=== PATIENT | female | born 1950 | race Asian ===

== ENCOUNTER 2016-07-05 18:56 | Emergency (ER) | payer BC, OTHER ==
[~2016-07-05] VITALS: Ht 160 cm; Wt 72.6 kg
[~2016-07-05 18:56] MED LIST: CHOL20004 PO; CLON2TAB PO; EZET1TAB7 PO; IBUP-1482 PO; LUBI24CA7 PO; PRED20TA PO; TRAZ-147 PO
--- NOTE | 2016-07-05 19:20 | NUR ---
BLOOD DRAW IN PROGRESS AT THE BEDSIDE.
--- NOTE | 2016-07-05 19:23 | NUR ---
PT AMBULATED TO THE BATHROOM WITH A STEADY GAIT TO GIVE A URINE SAMPLE.
[2016-07-05 19:25] LABS: BASOPHILS % (AUTO) 0.4 % (0.0-2.0); EOSINOPHILS # (AUTO) 0.2 /CMM (0.0-0.7); EOSINOPHILS % (AUTO) 2.3 % (0.0-6.0); HEMATOCRIT 43 % (33-45); HEMOGLOBIN 14.6 g/dL (11.5-14.8); LYMPHOCYTES % (AUTO) 25.3 % (20.0-44.0); MEAN CORPUSCULAR HEMOGLOBIN 30 PG (26.0-33.0); MEAN CORPUSCULAR HGB CONC 34 g/dl (31.0-36.0); MEAN CORPUSCULAR VOLUME 89 fL (82-100); MONOCYTES # (AUTO) 0.5 /CMM (0.1-1.30); MONOCYTES % (AUTO) 6.4 % (2.0-12.0); NEUTROPHILS % (AUTO) 65.6 % (43.0-81.0); PLATELET COUNT (AUTO) 243 /CMM (150-450); RDW COEFFICIENT OF VARIATION 11.6 (11.5-15.0); RED BLOOD CELL COUNT(AUTO) 4.82 MIL/uL (4.0-5.2); WHITE BLOOD COUNT (AUTO) 7.7 K/uL (4.3-11.0)
[2016-07-05] MEDS ORDERED: methylPREDNISolone SOD SUCC 125 MG/2ML VIAL ONE (19:29)
[2016-07-05 19:31] LABS: APPEARANCE,URINE Clear (CLEAR); BILIRUBIN,URINE Negative (NEGATIVE); BLOOD, URINE Small Ery/uL (NEGATIVE); COLOR,URINE Yellow (YELLOW); KETONES,URINE Negative (NEGATIVE); LEUKOCYTE ESTERASE ,URINE Negative (NEGATIVE); NITRITE, URINE Negative (NEGATIVE); PROTEIN,URINE Negative (NEGATIVE); UGLUCOSE Negative (NEGATIVE); UROBILINOGEN,URINE 0.2 EU/dL (0.2)
[2016-07-05 19:38] LABS: BILIRUBIN,DIRECT 0.1 mg/dL (0.0-0.2); BILIRUBIN,TOTAL 0.3 mg/dL (0.2-1.0); CALCIUM, SERUM 9.5 mg/dL (8.5-10.1); CREATININE 0.8 mg/dL (0.6-1.3); POTASSIUM 3.7 mmol/L (3.5-5.1); TOTAL PROTEIN, SERUM 7.4 g/dL (6.4-8.2)
[2016-07-05] MEDS ORDERED: IPRATROPIUM NEB FS 0.5 MG/2.5 ML AMPUL.NEB ONE (19:38)
[2016-07-05] MEDS ORDERED: ALBUTEROL FS 2.5 MG/3 ML VIAL.NEB ONE (19:38)
[2016-07-05] MEDS: methylPREDNISolone SOD SUCC 125 MG/2ML VIAL IV ONE (19:46)
--- NOTE | 2016-07-05 19:46 | NUR ---
BREATHING TX IN PROGRESS.
[2016-07-05 19:50] LABS: ADD URINE CULTURE NO; BACTERIA,URINE None seen /HPF (None Seen); SQUAMOUS EPITHELIAL CELL,UR Few /HPF (None Seen); WBC,URINE 0-2 /HPF (0-3)
[2016-07-05] MEDS: IPRATROPIUM NEB FS 0.5 MG/2.5 ML AMPUL.NEB NEB ONE (20:06)
[2016-07-05] MEDS: ALBUTEROL FS 2.5 MG/3 ML VIAL.NEB NEB ONE (20:06)
[2016-07-05 21:15] VITALS: BP 131/79
== END 2016-07-05 20:55 | disposition home or self-care (01) ==
LOC: ER 18:57
DX: J45.901 Unspecified asthma with (acute) exacerbation (principal); Z88.5 Allergy status to narcotic agent; Z88.0 Allergy status to penicillin; Z88.2 Allergy status to sulfonamides; Z88.8 Allergy status to other drugs, medicaments and biological substances; Z88.6 Allergy status to analgesic agent; Z88.1 Allergy status to other antibiotic agents; Z91.011 Allergy to milk products
CPT/HCPCS: 36415; 71010-TC; 80048-TC; 80076-TC; 81000-TC; 85025-TC; A4606; J2930; Z7610

== ENCOUNTER 2017-07-04 14:14 | Outpatient (CLI) | payer BC, OTHER ==
[~2017-07-04 14:14] MED LIST changes: +EZET1TAB31 PO; -EZET1TAB7 PO; -IBUP-1482 PO; +IBUP-1957 PO; +LUBI24CA5 PO; -LUBI24CA7 PO; -TRAZ-147 PO; +TRAZ-214 PO
[2017-07-04 15:24] LABS: BASOPHILS % (AUTO) 0.3 % (0.0-2.0); EOSINOPHILS % (AUTO) 2.1 % (0.0-6.0); HEMATOCRIT 39 % (33-45); HEMOGLOBIN 13.3 g/dL (11.5-14.8); LYMPHOCYTES # (AUTO) 2.1 /CMM (0.8-4.8); LYMPHOCYTES % (AUTO) 28.7 % (20.0-44.0); MEAN CORPUSCULAR HGB CONC 35 g/dl (31.0-36.0); MEAN CORPUSCULAR VOLUME 89 fL (82-100); MONOCYTES # (AUTO) 0.5 /CMM (0.1-1.30); MONOCYTES % (AUTO) 6.5 % (2.0-12.0); NEUTROPHILS # (AUTO) 4.5 /CMM (1.8-8.9); NEUTROPHILS % (AUTO) 62.4 % (43.0-81.0); PLATELET COUNT (AUTO) 250 /CMM (150-450); RDW COEFFICIENT OF VARIATION 12.1 (11.5-15.0); RED BLOOD CELL COUNT(AUTO) 4.35 MIL/uL (4.0-5.2); WHITE BLOOD COUNT (AUTO) 7.2 K/uL (4.3-11.0)
[2017-07-04 15:33] LABS: ALBUMIN 4.4 g/dL (3.4-5.0); BILIRUBIN,TOTAL 0.5 mg/dL (0.2-1.0); CALCIUM, SERUM 9.3 mg/dL (8.5-10.1); CREATININE 0.6 mg/dL (0.6-1.3); POTASSIUM 3.6 mmol/L (3.5-5.1); TOTAL PROTEIN, SERUM 7.6 g/dL (6.4-8.2)
[2017-07-04 16:09] LABS: APPEARANCE,URINE CLEAR (CLEAR); BILIRUBIN,URINE NEGATIVE (NEGATIVE); BLOOD, URINE NEGATIVE Ery/uL (NEGATIVE); COLOR,URINE YELLOW (YELLOW); KETONES,URINE NEGATIVE (NEGATIVE); LEUKOCYTE ESTERASE ,URINE NEGATIVE (NEGATIVE); NITRITE, URINE NEGATIVE (NEGATIVE); PH,URINE 5.5 (5.0-8.0); PROTEIN,URINE NEGATIVE (NEGATIVE); UGLUCOSE NEGATIVE (NEGATIVE); UROBILINOGEN,URINE 0.2 EU/dL (0.2)
[2017-07-04 18:52] LABS: FREE T4 (FREE THYROXINE) 1.16 ng/dL (0.76-1.46); THYROID STIMULATING HORMONE 0.752 uIU/mL (0.358-3.74); URIC ACID 5.1 mg/dL (2.6-7.2)
== END 2017-07-04 23:59 | disposition home or self-care (01) ==
LOC: LAB 14:14
PROVIDERS: ATTEND Legal Medicine
DX: Z00.01 Encounter for general adult medical examination with abnormal findings (principal); I10 Essential (primary) hypertension; E03.9 Hypothyroidism, unspecified; D64.9 Anemia, unspecified
CPT/HCPCS: 36415; 80053-TC; 80061-TC; 81000-TC; 82306; 82728-TC; 82746; 83540-TC; 84439-TC; 84443-TC; 84550-TC; 85025-TC

== ENCOUNTER → 2017-07-29 | Outpatient (CLI) | payer BC | END | disposition home or self-care (01) | LOC: RAD 09:24 | PROVIDERS: ATTEND Legal Medicine | DX: J98.11 Atelectasis (principal); I70.0 Atherosclerosis of aorta; J98.6 Disorders of diaphragm | CPT/HCPCS: 71046 ==

== ENCOUNTER 2017-10-20 03:38 | Emergency (ER) | payer BC ==
[~2017-10-20] VITALS: Ht 165.1 cm; Wt 65.8 kg
--- NOTE | 2017-10-20 03:38 | NUR ---
BB COWORKER; "WHILE WORKING, BILAT FLANK PAIN BECAME WORSE". PT IS HYPERTENSIVE BUT OTHERWISE VSS NAD A/OX4 ABLE TO MAKE NEEDS KNOWN. WILL CONTINUE TO MONITOR FOR ANY CHNAGES DURING THE SHIFT.
[2017-10-20] MEDS ORDERED: KETOROLAC TROMETHAMINE INJ 30 MG/ML VIAL ONE (03:55)
[2017-10-20] MEDS ORDERED: DIAZEPAM 5 MG TABLET ONE (03:56)
[2017-10-20] MEDS ORDERED: KETOROLAC TROMETHAMINE INJ 30 MG/ML VIAL IV ONE (04:00)
[2017-10-20] MEDS ORDERED: DIAZEPAM 10 MG TABLET PO ONE (04:00)
[2017-10-20] MEDS ORDERED: IV NS 0.9% 1,000 ML BAG IV ONE (04:00)
[2017-10-20 04:06] LABS: BASOPHILS % (AUTO) 0.3 % (0.0-2.0); EOSINOPHILS % (AUTO) 4.3 % (0.0-6.0); HEMATOCRIT 40 % (33-45); HEMOGLOBIN 13.5 g/dL (11.5-14.8); LYMPHOCYTES # (AUTO) 2.3 /CMM (0.8-4.8); LYMPHOCYTES % (AUTO) 32.1 % (20.0-44.0); MEAN CORPUSCULAR HEMOGLOBIN 31 PG (26.0-33.0); MEAN CORPUSCULAR HGB CONC 33 g/dl (31.0-36.0); MEAN CORPUSCULAR VOLUME 92 fL (82-100); MONOCYTES # (AUTO) 0.6 /CMM (0.1-1.30); MONOCYTES % (AUTO) 8.5 % (2.0-12.0); NEUTROPHILS # (AUTO) 3.9 /CMM (1.8-8.9); NEUTROPHILS % (AUTO) 54.8 % (43.0-81.0); PLATELET COUNT (AUTO) 259 /CMM (150-450); RDW COEFFICIENT OF VARIATION 12.2 (11.5-15.0); RED BLOOD CELL COUNT(AUTO) 4.36 MIL/uL (4.0-5.2); WHITE BLOOD COUNT (AUTO) 7.1 K/uL (4.3-11.0)
--- NOTE | 2017-10-20 04:18 | NUR ---
PT OFF TO CT
--- NOTE | 2017-10-20 04:23 | NUR ---
PT BACK FROM CT
[2017-10-20 04:28] LABS: ALBUMIN 4.3 g/dL (3.4-5.0); BILIRUBIN,DIRECT 0.1 mg/dL (0.0-0.2); BILIRUBIN,TOTAL 0.3 mg/dL (0.2-1.0); CALCIUM, SERUM 9.1 mg/dL (8.5-10.1); CREATININE 0.9 mg/dL (0.6-1.3); POTASSIUM 3.4 mmol/L (3.5-5.1); TOTAL PROTEIN, SERUM 7.7 g/dL (6.4-8.2)
[2017-10-20] MEDS ORDERED: ONDANSETRON HCL/PF 4 MG/2 ML VIAL ONE (05:29)
[2017-10-20] MEDS ORDERED: ONDANSETRON HCL/PF 4 MG/2 ML VIAL IV ONE (05:30)
[2017-10-20 06:14] VITALS: BP 150/84
[2017-10-20 06:25] LABS: APPEARANCE,URINE CLEAR (CLEAR); BILIRUBIN,URINE NEGATIVE (NEGATIVE); BLOOD, URINE NEGATIVE Ery/uL (NEGATIVE); COLOR,URINE YELLOW (YELLOW); KETONES,URINE NEGATIVE (NEGATIVE); LEUKOCYTE ESTERASE ,URINE NEGATIVE (NEGATIVE); NITRITE, URINE NEGATIVE (NEGATIVE); PH,URINE 6.5 (5.0-8.0); PROTEIN,URINE NEGATIVE (NEGATIVE); UGLUCOSE NEGATIVE (NEGATIVE); UROBILINOGEN,URINE 0.2 EU/dL (0.2)
== END 2017-10-20 06:15 | disposition home or self-care (01) ==
LOC: ER 03:39
DX: M48.56XA Collapsed vertebra, not elsewhere classified, lumbar region, initial encounter for fracture (principal); G89.29 Other chronic pain; R10.9 Unspecified abdominal pain; J45.909 Unspecified asthma, uncomplicated; Z88.5 Allergy status to narcotic agent; Z88.2 Allergy status to sulfonamides; Z88.8 Allergy status to other drugs, medicaments and biological substances; Z88.4 Allergy status to anesthetic agent; Z91.011 Allergy to milk products; Z90.49 Acquired absence of other specified parts of digestive tract
CPT/HCPCS: 36415; 80048-TC; 80076-TC; 81000-TC; 83690-TC; 85025-TC; 87086-TC; A4606; J1885; J2405; Z7610

== ENCOUNTER 2017-12-02 13:15 | Emergency (ER) | payer BC, OTHER ==
[~2017-12-02] VITALS: Ht 160 cm; Wt 75.7 kg
--- NOTE | 2017-12-02 13:15 | NUR ---
SYNCOPE IN THE BATHROOM WHILE PREPARING FOR HER COLONOSCOPY. SCALP LAC NOTED. BG 127 IN THE FIELD, NAD NOTED, VSS, RESP EVEN AND UNLABORED, PT WAS PUT ON MONITOR, AT BS
[2017-12-02] MEDS ORDERED: TDAP [DIPH/PERTUSSIS/TET] 0.5 ML VIAL IM ONE ×2 (13:26→14:30)
[2017-12-02] MEDS ORDERED: IV NS 0.9% 1,000 ML BAG IV ONE (13:30)
[2017-12-02 13:31] LABS: BASOPHILS # (AUTO) 0.3 /CMM (0.0-0.2); EOSINOPHILS % (AUTO) 1.3 % (0.0-6.0); HEMATOCRIT 44 % (33-45); HEMOGLOBIN 14.6 g/dL (11.5-14.8); LYMPHOCYTES # (AUTO) 1.7 /CMM (0.8-4.8); LYMPHOCYTES % (AUTO) 17.6 % (20.0-44.0); MEAN CORPUSCULAR HEMOGLOBIN 30 PG (26.0-33.0); MEAN CORPUSCULAR HGB CONC 33 g/dl (31.0-36.0); MEAN CORPUSCULAR VOLUME 90 fL (82-100); MONOCYTES # (AUTO) 0.4 /CMM (0.1-1.30); MONOCYTES % (AUTO) 4.1 % (2.0-12.0); NEUTROPHILS # (AUTO) 7.1 /CMM (1.8-8.9); PLATELET COUNT (AUTO) 232 /CMM (150-450); RDW COEFFICIENT OF VARIATION 11.2 (11.5-15.0); RED BLOOD CELL COUNT(AUTO) 4.87 MIL/uL (4.0-5.2); WHITE BLOOD COUNT (AUTO) 9.6 K/uL (4.3-11.0)
[2017-12-02 13:40] LABS: CALCIUM, SERUM 9.2 mg/dL (8.5-10.1); CARBON DIOXIDE 25 mmol/L (21-32); CHLORIDE 102 mmol/L (98-107); CREATININE 0.9 mg/dL (0.6-1.3); GLUCOSE 140 mg/dL (74-106); POTASSIUM 3.5 mmol/L (3.5-5.1); SODIUM SERUM 136 mmol/L (136-145); UREA NITROGEN, BLOOD 9 mg/dL (7-18)
[2017-12-02] MEDS ORDERED: KETOROLAC TROMETHAMINE INJ 30 MG/ML VIAL ONE (13:40)
[2017-12-02] MEDS ORDERED: ONDANSETRON HCL/PF 4 MG/2 ML VIAL ONE (13:40)
[2017-12-02 13:43] LABS: INR 0.95 (0.85-1.15)
[2017-12-02 13:46] LABS: ALANINE AMINOTRANSFERASE 42 U/L (12-78); ALBUMIN 4.2 g/dL (3.4-5.0); ALKALINE PHOSPHATASE 70 U/L (46-116); ASPARTATE AMINOTRANSFERASE 23 U/L (15-37); BILIRUBIN,DIRECT 0.1 mg/dL (0.0-0.2); BILIRUBIN,TOTAL 0.5 mg/dL (0.2-1.0); TOTAL PROTEIN, SERUM 3.3 g/dL (6.4-8.2)
[2017-12-02 13:47] LABS: TROPONIN I < 0.017 ng/mL (0.00-0.056)
[2017-12-02] MEDS ORDERED: LIDOCAINE 1%-EPI 1:100,000 20 ML VIAL ONE (13:52)
[2017-12-02] MEDS ORDERED: KETOROLAC TROMETHAMINE INJ 30 MG/ML VIAL IV ONE (14:00)
[2017-12-02] MEDS ORDERED: LIDOCAINE 1%-EPI 1:100,000 20 ML VIAL TP ONE (14:00)
[2017-12-02] MEDS ORDERED: ONDANSETRON HCL/PF - ER 4 MG/2 ML VIAL IV ONE (14:00)
[2017-12-02 15:41] VITALS: BP 111/60
--- NOTE | 2017-12-02 15:42 | NUR ---
Patient discharged to home in stable condition. Written and verbal after care instructions given. Patient verbalizes understanding of instruction.IV removed. Catheter intact and site benign. Pressure and 4x4 applied to site. No bleeding noted.
== END 2017-12-02 15:43 | disposition home or self-care (01) ==
LOC: ER 13:16
DX: S01.01XA Laceration without foreign body of scalp, initial encounter (principal); R55 Syncope and collapse; J45.909 Unspecified asthma, uncomplicated; K58.9 Irritable bowel syndrome, unspecified; Z90.49 Acquired absence of other specified parts of digestive tract; Z91.011 Allergy to milk products; Z88.0 Allergy status to penicillin; Z88.5 Allergy status to narcotic agent; Z88.6 Allergy status to analgesic agent; Z88.8 Allergy status to other drugs, medicaments and biological substances; Z88.2 Allergy status to sulfonamides; Z88.1 Allergy status to other antibiotic agents; Z79.899 Other long term (current) drug therapy; W18.39XA Other fall on same level, initial encounter; Y93.89 Activity, other specified; Y92.89 Other specified places as the place of occurrence of the external cause; Y99.8 Other external cause status
CPT/HCPCS: 12002; 36415; 70450; 71045; 72125; 80048; 80076; 84484; 85025; 85730; 86850; 90471; 90715; 93005; 96361; 96374; 96375; 99285; A4606; A6402 ×2; J1885; J2405; J3490; J7030; Z7610

== ENCOUNTER 2017-12-17 19:55 | Emergency (ER) | payer MEDICARE, BC ==
[~2017-12-17] VITALS: Ht 165.1 cm; Wt 81.2 kg
[2017-12-17 19:59] VITALS: BP 140/86
[2017-12-17 20:24] LABS: BASOPHILS # (AUTO) 0.1 /CMM (0.0-0.2); BASOPHILS % (AUTO) 0.8 % (0.0-2.0); EOSINOPHILS % (AUTO) 3.2 % (0.0-6.0); HEMATOCRIT 42 % (33-45); HEMOGLOBIN 14.4 g/dL (11.5-14.8); LYMPHOCYTES # (AUTO) 2.3 /CMM (0.8-4.8); LYMPHOCYTES % (AUTO) 29.8 % (20.0-44.0); MEAN CORPUSCULAR HEMOGLOBIN 31 PG (26.0-33.0); MEAN CORPUSCULAR HGB CONC 34 g/dl (31.0-36.0); MEAN CORPUSCULAR VOLUME 90 fL (82-100); MONOCYTES # (AUTO) 0.7 /CMM (0.1-1.30); MONOCYTES % (AUTO) 8.7 % (2.0-12.0); NEUTROPHILS # (AUTO) 4.4 /CMM (1.8-8.9); NEUTROPHILS % (AUTO) 57.5 % (43.0-81.0); PLATELET COUNT (AUTO) 257 /CMM (150-450); RDW COEFFICIENT OF VARIATION 11.7 (11.5-15.0); RED BLOOD CELL COUNT(AUTO) 4.71 MIL/uL (4.0-5.2); WHITE BLOOD COUNT (AUTO) 7.7 K/uL (4.3-11.0)
[2017-12-17 20:31] LABS: CALCIUM, SERUM 9.5 mg/dL (8.5-10.1); CREATININE 0.7 mg/dL (0.6-1.3); POTASSIUM 3.6 mmol/L (3.5-5.1)
== END 2017-12-17 21:21 | disposition home or self-care (01) ==
LOC: ER 19:57
DX: R42 Dizziness and giddiness (principal); J45.909 Unspecified asthma, uncomplicated; F41.9 Anxiety disorder, unspecified; K58.9 Irritable bowel syndrome, unspecified; R94.31 Abnormal electrocardiogram [ECG] [EKG]; Z90.49 Acquired absence of other specified parts of digestive tract; Z88.0 Allergy status to penicillin; Z88.2 Allergy status to sulfonamides; Z88.8 Allergy status to other drugs, medicaments and biological substances; Z91.011 Allergy to milk products; Z88.6 Allergy status to analgesic agent; Z88.5 Allergy status to narcotic agent
CPT/HCPCS: 36415; 80048-TC; 85025-TC; A4606; Z7610

== ENCOUNTER 2018-06-10 07:46 | Inpatient (IN) | payer MEDICARE, BC ==
[~2018-06-10] VITALS: Ht 160 cm; Wt 74.8 kg
[2018-06-10] MEDS ORDERED: KETOROLAC TROMETHAMINE INJ 30 MG/ML VIAL ONE (08:35)
[2018-06-10 08:36] LABS: CALCIUM, SERUM 9.6 mg/dL (8.5-10.1); CARBON DIOXIDE 29 mmol/L (21-32); CHLORIDE 102 mmol/L (98-107); CREATININE 0.7 mg/dL (0.6-1.3); GLUCOSE 136 mg/dL (74-106); POTASSIUM 4.1 mmol/L (3.5-5.1); SODIUM SERUM 140 mmol/L (136-145); UREA NITROGEN, BLOOD 13 mg/dL (7-18)
[2018-06-10] MEDS ORDERED: ONDANSETRON HCL/PF 4 MG/2 ML VIAL ONE ×2 (08:36→10:29)
[2018-06-10 08:42] LABS: ALANINE AMINOTRANSFERASE 40 U/L (12-78); ALBUMIN 4.1 g/dL (3.4-5.0); ALKALINE PHOSPHATASE 84 U/L (46-116); ASPARTATE AMINOTRANSFERASE 24 U/L (15-37); BILIRUBIN,DIRECT 0.1 mg/dL (0.0-0.2); BILIRUBIN,TOTAL 0.4 mg/dL (0.2-1.0); TOTAL PROTEIN, SERUM 7.6 g/dL (6.4-8.2)
[2018-06-10 08:46] LABS: BASOPHILS % (AUTO) 0.3 % (0.0-2.0); EOSINOPHILS % (AUTO) 2.1 % (0.0-6.0); HEMATOCRIT 40 % (33-45); HEMOGLOBIN 13.8 g/dL (11.5-14.8); LYMPHOCYTES # (AUTO) 1.4 /CMM (0.8-4.8); LYMPHOCYTES % (AUTO) 18.8 % (20.0-44.0); MEAN CORPUSCULAR HGB CONC 35 g/dl (31.0-36.0); MEAN CORPUSCULAR VOLUME 89 fL (82-100); MONOCYTES # (AUTO) 0.5 /CMM (0.1-1.30); NEUTROPHILS # (AUTO) 5.5 /CMM (1.8-8.9); NEUTROPHILS % (AUTO) 71.8 % (43.0-81.0); PLATELET COUNT (AUTO) 241 /CMM (150-450); RED BLOOD CELL COUNT(AUTO) 4.46 MIL/uL (4.0-5.2); WHITE BLOOD COUNT (AUTO) 7.7 K/uL (4.3-11.0)
--- NOTE | 2018-06-10 08:50 | NUR ---
patient presented to the ER c/o chest pain non radiating pressure like pain. [place] On room air, breathing evenly and unlabored. connected to the monitor. kept comfortable. will continue to monitor accordingly.
[2018-06-10] MEDS ORDERED: KETOROLAC TROMETHAMINE INJ 30 MG/ML VIAL IV ONE (09:00)
[2018-06-10] MEDS ORDERED: ONDANSETRON HCL/PF - ER 4 MG/2 ML VIAL IV ONE ×2 (09:00→10:30)
--- NOTE | 2018-06-10 10:13 | NUR ---
ORTHO ON-CALL PAGED
--- NOTE | 2018-06-10 10:20 | NUR ---
PT AAOX4, VSS. DENIES CP, SOB, DIZZINESS, N/V @ THIS TIME. C/O LT RIB PAIN 01/08, NOTIFIED DR. JIMÉNEZ, AWAITING ORDERS.
[2018-06-10] MEDS ORDERED: FENTANYL PF 100MCG/2ML AMPUL ONE (10:30)
[2018-06-10] MEDS ORDERED: FENTANYL PF 100MCG/2ML AMPUL IV ONE (10:30)
--- NOTE | 2018-06-10 10:48 | NUR ---
DR ZAVALA AND ORTHO ON-CALL PAGED
--- NOTE | 2018-06-10 10:50 | NUR ---
MEDICATED FOR PAIN PER ERMD ORDER, PT LISA WELL. WILL CONT TO MONITOR.
--- NOTE | 2018-06-10 11:22 | NUR ---
CALLED CALEDONIA DEE JAIMES DR WAS PAGED.
--- NOTE | 2018-06-10 11:25 | NUR ---
REPORT GIVEN TO ROSAMARIA HANSEN @ [facility] FOR CONT OF CARE.
[2018-06-10] MEDS ORDERED: Medication Not On Formulary EA (Ezetimibe/Simvastatin (Vytorin 10-40 Mg Tablet) 1 TAB) PO SCH (12:00)
[2018-06-10] MEDS ORDERED: IBUPROFEN 400 MG TABLET PO PRN (12:30)
[2018-06-10 13:03] LABS: MAGNESIUM 1.9 mg/dL (1.8-2.4); PHOSPHORUS 4.1 mg/dL (2.5-4.9); THYROID STIMULATING HORMONE 1.524 uIU/mL (0.358-3.74)
--- NOTE | 2018-06-10 13:20 | NUR ---
HARVEST FIELD TICKETER ADMISSION NOTES RECEIVED PATIENT FROM ED VIA GURNEY. ABLE TO AMBULATE TO BED WITH ASSIST.ON 3 LTRS OXYGEN FOR COMFORT ACUTE PAIN 12/10 TO RIGHT SIDE UNDER RIB CAGE. SKIN INTACT FULL ASSESSMENT DONE. AT BEDSIDE . SAFETY PRECAUTION IN PLAC E2X SIDE RAILS UP AWAITING MED RECON WILL CONT TO MONITOR
[2018-06-10 13:30] VITALS: BP 137/60
[2018-06-10] MEDS ORDERED: ACETAMINOPHEN 325 MG TABLET PO PRN (13:30)
[2018-06-10] MEDS ORDERED: ALBUTEROL FS 2.5 MG/0.5 ML VIAL.NEB NEB PRN (13:30)
[2018-06-10] MEDS ORDERED: IPRATROPIUM NEB FS 0.5 MG/2.5 ML AMPUL.NEB NEB PRN (13:30)
[2018-06-10] MEDS ORDERED: FENTANYL PF 100MCG/2ML AMPUL IV PRN (14:00)
[2018-06-10] MEDS: predniSONE 20 MG TABLET PO SCH (14:24)
[2018-06-10] MEDS: CHOLECALCIFEROL 1,000 UNIT TABLET (VIT D3) PO SCH (14:24)
[2018-06-10] MEDS: ONDANSETRON HCL/PF 4 MG/2 ML VIAL IVP PRN ×3 (14:25→23:45)
[2018-06-10] MEDS: ENOXAPARIN SODIUM 40 MG/0.4 ML DISP.SYRIN SQ SCH (14:25)
[2018-06-10] MEDS: FENTANYL PF 100MCG/2ML AMPUL IV PRN ×3 (14:34→23:42)
[2018-06-10 16:00] VITALS: BP 101/44
[2018-06-10 17:00] VITALS: BP 101/44
[2018-06-10] MEDS: LIDOCAINE 5% (PATCH) 1 EA PATCH TP SCH (18:52)
--- NOTE | 2018-06-10 19:15 | NUR ---
AVIATION SURVIVAL TECHNICIAN CLOSING NOTES BEDSIDE REPORT GIVEN A/O X4 NO RESPIRATORY DISTRESS NOTED CURRENTLY ON ROOM AIR. CHRONIC RIB PAIN LAST DOSE OF FENTANYL GIVEN @ 1800 WITH ZOFRAN. AMBULATORY IN ROOM APPETITE GOOD. SKIN INTACT LIDODERM PATCH APPLIED TO L SIDE FOR PAIN RELIEF. ABLE TO MAKE NEEDS KNOWN AND ALL MET. SAFETY PRECAUTIONS IN PLACE BED IN LOW POSITION CALL LIGHT WITHIN REACH WILL ENDORSE TO NOC
--- NOTE | 2018-06-10 20:00 | NUR ---
TELE/RN NOTES: RECEIVED PT. IN BED SITTING W/ HER SISTERS BY BEDSIDE. A/O X 4. ABLE TO MAKE NEEDS KNOWN. ON TELE MONITOR W/ SR. CONTINENT OF B/B. ABLE TO AMBULATE W/ STEADY GAIT. ADVISED TO CALL FOR HELP WHEN GETTING OUT OF BED FOR SAFETY. HAS LAC G 20 PATENT AND INTACT W/ NO S/S OF INFECTION/INFILTRATION NOTED. CALL LIGHT W/ REACH. WILL CONTINUE TO MONITOR.
[2018-06-10 21:00] VITALS: BP 136/72
[2018-06-10] MEDS: clonazePAM 1 MG TABLET PO SCH (22:16)
[2018-06-10] MEDS: TRAZODONE 50 MG TABLET PO SCH (22:16)
[2018-06-11] VITALS (10 sets, daily range): BP systolic 111–150; BP diastolic 49–72
[2018-06-11] MEDS: ONDANSETRON HCL/PF 4 MG/2 ML VIAL IVP PRN (06:21)
[2018-06-11] MEDS: FENTANYL PF 100MCG/2ML AMPUL IV PRN ×5 (06:22→22:09)
[2018-06-11 06:34] LABS: BASOPHILS % (AUTO) 0.1 % (0.0-2.0); HEMATOCRIT 40 % (33-45); HEMOGLOBIN 13.7 g/dL (11.5-14.8); LYMPHOCYTES # (AUTO) 0.9 /CMM (0.8-4.8); MEAN CORPUSCULAR HGB CONC 34 g/dl (31.0-36.0); MEAN CORPUSCULAR VOLUME 90 fL (82-100); MONOCYTES # (AUTO) 0.1 /CMM (0.1-1.30); MONOCYTES % (AUTO) 1.9 % (2.0-12.0); NEUTROPHILS # (AUTO) 5.2 /CMM (1.8-8.9); PLATELET COUNT (AUTO) 231 /CMM (150-450); RED BLOOD CELL COUNT(AUTO) 4.47 MIL/uL (4.0-5.2); WHITE BLOOD COUNT (AUTO) 6.2 K/uL (4.3-11.0)
[2018-06-11 06:47] LABS: ALANINE AMINOTRANSFERASE 43 U/L (12-78); ALBUMIN 3.7 g/dL (3.4-5.0); ALKALINE PHOSPHATASE 74 U/L (46-116); ASPARTATE AMINOTRANSFERASE 20 U/L (15-37); BILIRUBIN,TOTAL 0.3 mg/dL (0.2-1.0); CALCIUM, SERUM 9.4 mg/dL (8.5-10.1); CARBON DIOXIDE 27 mmol/L (21-32); CHLORIDE 104 mmol/L (98-107); CREATININE 0.7 mg/dL (0.6-1.3); GLUCOSE 200 mg/dL (74-106); PHOSPHORUS 3.2 mg/dL (2.5-4.9); POTASSIUM 4.1 mmol/L (3.5-5.1); SODIUM SERUM 142 mmol/L (136-145); TOTAL PROTEIN, SERUM 7.3 g/dL (6.4-8.2); UREA NITROGEN, BLOOD 12 mg/dL (7-18)
--- NOTE | 2018-06-11 07:16 | NUR ---
TELE/RN NOTES: REPORT GIVEN TO NEXT SHIFT NURSE FOR KALA.
--- NOTE | 2018-06-11 07:30 | NUR ---
NEWBORN HEARING SCREENER OPENING NOTES RECEIVED BEDSIDE REPORT FROM [facility]. PATIENT ASLEEP ABLE TO AROUSE WITH VOICE AND TOUCH. A/O X4 NO SIGNS OR SYMPTOMS OF RESPIRATORY DISTRESS OR ACUTE PAIN NOTED. LAST FENTANYL GIVEN AROUND 0600. AMBULATES IN ROOM BRP. SAFETY PRECAUTIONS IN PLACE BED IN LOW POSITION SIDE RAILS X2 CALL LIGHT WITHIN REACH
[2018-06-11] MEDS: PANTOPRAZOLE 40 MG TABLET.DR PO SCH (07:38)
[2018-06-11] MEDS: EZETIMIBE 10 MG TABLET PO SCH (08:06)
[2018-06-11] MEDS: predniSONE 20 MG TABLET PO SCH (08:06)
[2018-06-11] MEDS: CHOLECALCIFEROL 1,000 UNIT TABLET (VIT D3) PO SCH (08:07)
[2018-06-11] MEDS: ENOXAPARIN SODIUM 40 MG/0.4 ML DISP.SYRIN SQ SCH (08:08)
[2018-06-11] MEDS ORDERED: SIMVASTATIN 40 MG TABLET PO SCH (09:00)
[2018-06-11] MEDS ORDERED: MAGNESIUM HYDROXIDE 30 ML UDC PO PRN (09:00)
[2018-06-11] MEDS ORDERED: AMITIZA 24 MCG PO SCH (09:00)
[2018-06-11] MEDS: SENNOSIDES/DOCUSATE SODIUM 1 TAB TABLET PO SCH (09:33)
[2018-06-11] MEDS: SORBITOL SOLUTION 30 ML PO SCH (10:31)
[2018-06-11] MEDS: ONDANSETRON HCL/PF 4 MG/2 ML VIAL IV PRN ×3 (13:15→22:08)
[2018-06-11] MEDS: LIDOCAINE 5% (PATCH) 1 EA PATCH TP SCH (16:54)
--- NOTE | 2018-06-11 19:04 | NUR ---
SPINDLE SETTER CLOSING NOTES BEDSIDE REPORT GIVEN A/O X4 NO RESPIRATORY DISTRESS NOTED CURRENTLY ON ROOM AIR. CHRONIC RIB PAIN LAST DOSE OF FENTANYL GIVEN @ 1654 WITH ZOFRAN. AMBULATORY IN ROOM APPETITE GOOD. SKIN INTACT LIDODERM PATCH APPLIED TO L SIDE FOR PAIN RELIEF. ABLE TO MAKE NEEDS KNOWN AND ALL MET. SAFETY PRECAUTIONS IN PLACE BED IN LOW POSITION CALL LIGHT WITHIN REACH WILL ENDORSE TO NOC
[2018-06-11] MEDS: NITROGLYCERIN 0.4 MG/TAB BOTTLE SL PRN ×2 (20:47→21:10)
--- NOTE | 2018-06-11 21:00 | NUR ---
TELE/RN NOTES" RECEIVED PT. IN BED W/ FAMILY BY BEDSIDE. PT. IS SITTING UP IN HER BED. A/O X 4. DENIES ANY C/O SOB AT PRESENT. PT. C/O CHEST PAIN 7/10 RADIATING TO JAW. V/S BP 122/66 HR 66 RA SAT 97%. CALLED DR. ZAVALA AND LEFT MESSAGE. CALLED STEPAN MOISE W/ ORDERS FOR STAT TROP AND NITRO. STAT EKG DONE W/ NSR. NP. MOISE MADE AWARE. DR. ZAVALA CALLED AND INFORMED ABOUT PT. CONDITION W/ ORDERS TO CALL DR. ATKINS. TEXTED DR. ATKINS W/ ORDERS TO SEND THE EKG RESULT STAT ONE THE PRIOR ONE. INFORMED PT. THE UPDATE ON THE TROP RESULT AND WHAT DR. ATKINS/DR. ZAVALA SAID. CP SUBSIDED AFTER NITRO X 3. PT. HAS LFA G 20 PATENT AND INTACT W/ NO S/S OF INFECTION/INFILTRATION NOTED. PT. HAS FADUMO. LOWER EXTREMITIES W/ +2 EDEMA. HAS FADUMO. KNEE BRUISES. CALL LIGHT W/ REACH. WILL CONTINUE TO MONITOR.
[2018-06-11] MEDS: clonazePAM 1 MG TABLET PO SCH (21:39)
[2018-06-11] MEDS: ATORVASTATIN 10 MG TABLET PO SCH (21:39)
[2018-06-11] MEDS: TRAZODONE 50 MG TABLET PO SCH (21:39)
[2018-06-12] VITALS (8 sets, daily range): BP systolic 104–133; BP diastolic 57–75
[2018-06-12] MEDS: ONDANSETRON HCL/PF 4 MG/2 ML VIAL IV PRN ×5 (05:06→21:25)
[2018-06-12] MEDS: FENTANYL PF 100MCG/2ML AMPUL IV PRN ×6 (05:07→21:24)
[2018-06-12 06:29] LABS: BASOPHILS % (AUTO) 0.2 % (0.0-2.0); EOSINOPHILS % (AUTO) 0.1 % (0.0-6.0); HEMATOCRIT 37 % (33-45); HEMOGLOBIN 12.7 g/dL (11.5-14.8); LYMPHOCYTES # (AUTO) 2.3 /CMM (0.8-4.8); LYMPHOCYTES % (AUTO) 21.2 % (20.0-44.0); MEAN CORPUSCULAR HGB CONC 34 g/dl (31.0-36.0); MEAN CORPUSCULAR VOLUME 89 fL (82-100); MONOCYTES # (AUTO) 0.7 /CMM (0.1-1.30); MONOCYTES % (AUTO) 6.7 % (2.0-12.0); NEUTROPHILS # (AUTO) 7.7 /CMM (1.8-8.9); NEUTROPHILS % (AUTO) 71.8 % (43.0-81.0); PLATELET COUNT (AUTO) 232 /CMM (150-450); RED BLOOD CELL COUNT(AUTO) 4.17 MIL/uL (4.0-5.2); WHITE BLOOD COUNT (AUTO) 10.8 K/uL (4.3-11.0)
[2018-06-12 06:40] LABS: CALCIUM, SERUM 9.1 mg/dL (8.5-10.1); CREATININE 0.8 mg/dL (0.6-1.3); POTASSIUM 3.8 mmol/L (3.5-5.1)
--- NOTE | 2018-06-12 07:13 | NUR ---
TELE/RN NOTES: REPORT GIVEN TO NEXT SHIFT NURSE FOR KALA.
--- NOTE | 2018-06-12 07:30 | NUR ---
HOTEL NIGHT AUDITOR OPENING NOTES RECEIVED BEDSIDE REPORT FROM NOC AWAKE A/O X4 NO SIGNS OR SYMPTOMS OF RESPIRATORY DISTRESS COMPLAINT OF SHARP CHEST PAIN WOULD LIKE TO SPEAK WITH MD IN REGARDS TO INCREASING DOSE. LAST FENTANYL GIVEN AROUND 0600. AMBULATES IN ROOM BRP.C/O OF CHEST PAIN IN THE EVENING WILL F/U SAFETY PRECAUTIONS IN PLACE BED IN LOW POSITION SIDE RAILS X2 CALL LIGHT WITHIN REACH
[2018-06-12] MEDS: PANTOPRAZOLE 40 MG TABLET.DR PO SCH (08:09)
[2018-06-12] MEDS: SENNOSIDES/DOCUSATE SODIUM 1 TAB TABLET PO SCH (08:10)
[2018-06-12] MEDS: predniSONE 20 MG TABLET PO SCH (08:10)
[2018-06-12] MEDS: EZETIMIBE 10 MG TABLET PO SCH (08:10)
[2018-06-12] MEDS: CHOLECALCIFEROL 1,000 UNIT TABLET (VIT D3) PO SCH (08:10)
[2018-06-12] MEDS: SORBITOL SOLUTION 30 ML PO SCH (08:11)
[2018-06-12] MEDS: ENOXAPARIN SODIUM 40 MG/0.4 ML DISP.SYRIN SQ SCH (08:11)
[2018-06-12] MEDS ORDERED: IOHEXOL-350 100 ML VIAL IV ONE (11:14)
[2018-06-12] MEDS ORDERED: CT SWABBABLE VALVE TRANS SET 1 EA INFUS.SET MC ONE (11:14)
[2018-06-12] MEDS ORDERED: IV NS 0.9% 250 ML IV ONE (11:15)
[2018-06-12] MEDS ORDERED: IV NS 0.9% 500 ML IV ONE (11:30)
[2018-06-12] MEDS ORDERED: NITROGLYCERIN 0.4 MG/TAB BOTTLE SL ONE (11:30)
[2018-06-12] MEDS ORDERED: METOPROLOL TARTRATE INJ 5 MG/5 ML AMPUL IVP ONE (11:30)
[2018-06-12] MEDS ORDERED: NA PHOS,M-B/NA PHOS,DI-BA 1 EA ENEMA RC PRN (13:00)
[2018-06-12] MEDS ORDERED: MAGNESIUM CITRATE 296 ML BOTTLE PO ONE (13:00)
--- NOTE | 2018-06-12 17:53 | NUR ---
RN MS SPOKE WITH DR TEMI PRICE. REVIEWED FILMS AND SPOKE WITH DR ZAVALA IN REGARDS TO PLAN OF CARE. POSSIBLE BRACE OR SPLINT FOR COMFORT NO NEED FOR SURGERY AT THIS TIME. WILL TRY AND COME BY EARLY IN THE AM 06/13 OR PATIENT CAN FOLLOW UP IN THE OFFICE
[2018-06-12] MEDS: LIDOCAINE 5% (PATCH) 1 EA PATCH TP SCH (18:23)
--- NOTE | 2018-06-12 19:20 | NUR ---
SOCIAL WORK JOB TITLES CLOSING NOTES BEDSIDE REPORT GIVEN A/O X4 NO RESPIRATORY DISTRESS NOTED CURRENTLY ON ROOM AIR. CHRONIC RIB PAIN LAST DOSE OF FENTANYL GIVEN @ 1900 WITH ZOFRAN.ORDERS FOR Q3HR AMBULATORY IN ROOM APPETITE GOOD.3X LARGE LOOSE BM SKIN INTACT LIDODERM PATCH APPLIED TO L SIDE FOR PAIN RELIEF. ABLE TO MAKE NEEDS KNOWN AND ALL MET. SAFETY PRECAUTIONS IN PLACE BED IN LOW POSITION CALL LIGHT WITHIN REACH WILL ENDORSE TO NOC
[2018-06-12] MEDS: TRAZODONE 50 MG TABLET PO SCH (21:45)
[2018-06-12] MEDS: ATORVASTATIN 10 MG TABLET PO SCH (21:46)
[2018-06-12] MEDS: clonazePAM 1 MG TABLET PO SCH (21:46)
[2018-06-13] MEDS: FENTANYL PF 100MCG/2ML AMPUL IV PRN ×8 (00:30→22:20)
[2018-06-13] MEDS: ONDANSETRON HCL/PF 4 MG/2 ML VIAL IV PRN ×8 (00:30→22:21)
[2018-06-13 04:00] VITALS: BP 124/65
[2018-06-13] MEDS: PANTOPRAZOLE 40 MG TABLET.DR PO SCH (07:25)
[2018-06-13 07:57] LABS: BASOPHILS % (AUTO) 0.2 % (0.0-2.0); EOSINOPHILS % (AUTO) 0.3 % (0.0-6.0); HEMATOCRIT 38 % (33-45); HEMOGLOBIN 13.1 g/dL (11.5-14.8); LYMPHOCYTES # (AUTO) 2.4 /CMM (0.8-4.8); LYMPHOCYTES % (AUTO) 26.9 % (20.0-44.0); MEAN CORPUSCULAR HGB CONC 34 g/dl (31.0-36.0); MEAN CORPUSCULAR VOLUME 91 fL (82-100); MONOCYTES # (AUTO) 0.7 /CMM (0.1-1.30); MONOCYTES % (AUTO) 7.8 % (2.0-12.0); NEUTROPHILS # (AUTO) 5.8 /CMM (1.8-8.9); NEUTROPHILS % (AUTO) 64.8 % (43.0-81.0); PLATELET COUNT (AUTO) 206 /CMM (150-450); RED BLOOD CELL COUNT(AUTO) 4.23 MIL/uL (4.0-5.2); WHITE BLOOD COUNT (AUTO) 8.9 K/uL (4.3-11.0)
[2018-06-13 08:00] VITALS: BP 131/69
[2018-06-13 08:33] LABS: CALCIUM, SERUM 8.8 mg/dL (8.5-10.1); CREATININE 0.8 mg/dL (0.6-1.3); MAGNESIUM 2.4 mg/dL (1.8-2.4); POTASSIUM 4.1 mmol/L (3.5-5.1)
[2018-06-13] MEDS: predniSONE 20 MG TABLET PO SCH (08:34)
[2018-06-13] MEDS: SENNOSIDES/DOCUSATE SODIUM 1 TAB TABLET PO SCH (08:34)
[2018-06-13] MEDS: CHOLECALCIFEROL 1,000 UNIT TABLET (VIT D3) PO SCH (08:34)
[2018-06-13] MEDS: SORBITOL SOLUTION 30 ML PO SCH (08:34)
[2018-06-13] MEDS: EZETIMIBE 10 MG TABLET PO SCH (08:34)
[2018-06-13] MEDS: ENOXAPARIN SODIUM 40 MG/0.4 ML DISP.SYRIN SQ SCH (08:35)
--- NOTE | 2018-06-13 09:50 | NUR ---
RN NOTE 0715: Received patient awake, A/Ox4, aware for the POC. Tolerated room air. Patient aware for the timing of pain medications. Still with c/o left ribs pain. PIVs intact. 0830: Able to get out of bed, sitting on chair, eating breakfast. 0930: S/E by Dr. Valdez vector control assistant, with order to have Dr. Cota's consult. 0950: S/E by Dr. Cota.
[2018-06-13] MEDS ORDERED: METHOCARBAMOL (500MG) 500 MG TABLET PO SCH (10:00)
[2018-06-13] MEDS: CELECOXIB 100 MG CAPSULE PO SCH ×2 (11:08→21:54)
[2018-06-13] MEDS: LIDOCAINE 5% (PATCH) 1 EA PATCH TP SCH (11:08)
[2018-06-13] MEDS: METHOCARBAMOL (500MG) 500 MG TABLET PO SCH ×2 (12:44→16:29)
--- NOTE | 2018-06-13 12:51 | NUR ---
RN NOTE No reactions from Celebrex, Robaxin given now.
[2018-06-13 16:00] VITALS: BP 123/75
--- NOTE | 2018-06-13 17:52 | NUR ---
RN NOTE No any significant changes. Pain managed well, On Lido patch. Celebrex and Robaxin, will continue to monitor for any adverse reactions. Kept clean, warm and dry. Needs attended. Kept call light at reach. Able to do bed mobility independently.
--- NOTE | 2018-06-13 19:11 | NUR ---
RN NOTE Fentanyl given, endorsed to Aaliyah to reassess.
--- NOTE | 2018-06-13 19:30 | NUR ---
CHELSEA/QUARTER LINING SMOOTHER RECEIVED REPORT FROM DAY NURSE. SEE FLOW SHEET FOR ASSESSMENT AND ANY SKIN ISSUES WHICH ARE ADDRESSED ALONG WITH THEIR INTERVENTIONS. PT JUST RECEIVED FENTANYL AND ZOFRAN BY DAY NURSE. CALL LIGHT WITHIN REACH WILL CONTINUE TO MONITOR THIS PT'S PAIN.
[2018-06-13 20:00] VITALS: BP 104/47
--- NOTE | 2018-06-13 20:30 | NUR ---
CHELSEA/SUPERINTENDENT CONCRETE MIXING PLANT REASSESSMENT OF PAIN, PT'S PAIN LEVEL IS 5/10 FROM 10/10 PRIOR TO MEDICATION ADMINISTRATION. CALL LIGHT WITHIN REACH WILL CONTINUE TO MONITOR THIS PT'S PAIN.
[2018-06-13] MEDS: TRAZODONE 50 MG TABLET PO SCH (21:53)
[2018-06-13] MEDS: clonazePAM 1 MG TABLET PO SCH (21:55)
[2018-06-13] MEDS: ATORVASTATIN 10 MG TABLET PO SCH (21:55)
--- NOTE | 2018-06-13 22:40 | NUR ---
CHELSEA/EAR FLAP BINDER PT COMPLAINED ABOUT PAIN TO BACK AND SIDE. PAIN RATED AT 10/10. NOTIFIED COVERING DIAMOND DIE DRILLER WHO THEN GAVE PRN DOSE OF FENTANYL 25MG AND ZOFRAN 4MG IVP. THE ZOFRAN IS HELP WITH NAUSEA THAT PT EXPERIENCES WHEN RECEIVING PAIN MEDICATION. CALL LIGHT WITHIN REACH. WILL CONTINUE TO MONITOR THIS PT'S PAIN
[2018-06-14] MEDS: FENTANYL PF 100MCG/2ML AMPUL IV PRN ×6 (04:13→21:04)
--- NOTE | 2018-06-14 04:20 | NUR ---
CHELSEA/CLASS A LINEMAN PT COMPLAINED ABOUT PAIN TO BACK AND SIDE. PAIN RATED AT 10/10. NOTIFIED COVERING CLERK TRAVEL RESERVATIONS WHO THEN GAVE PRN DOSE OF FENTANYL 25MG AND ZOFRAN 4MG IVP. THE ZOFRAN IS HELP WITH NAUSEA THAT PT EXPERIENCES WHEN RECEIVING PAIN MEDICATION. CALL LIGHT WITHIN REACH. WILL CONTINUE TO MONITOR THIS PT'S PAIN
[2018-06-14] MEDS: PANTOPRAZOLE 40 MG TABLET.DR PO SCH (06:36)
--- NOTE | 2018-06-14 07:30 | NUR ---
RN OPENING NOTE: RECEIVED PATIENT IN BED, AWAKE, ALERT AND VERBALLY RESPONSIVE. RESPIRATION EVEN AND UNLABORED SATURATING 994% IN ROOM AIR. PATIENT LAID FLAT ON THE BED, BUT VERBALIZED THAT SHE HAD A GOOD SLEEP LAST NIGHT. (R) AC IV SITE NOTED PATENT AND INTACT. BED ALARMED AND LOCKED AT ALL TIMES. CALL LIGHT WITHIN REACH. NEEDS ANTICIPATED.
[2018-06-14] MEDS: ONDANSETRON HCL/PF 4 MG/2 ML VIAL IV PRN ×5 (07:52→21:05)
[2018-06-14 08:00] VITALS: BP 127/61
[2018-06-14] MEDS: CELECOXIB 100 MG CAPSULE PO SCH ×2 (08:56→21:00)
[2018-06-14] MEDS: METHOCARBAMOL (500MG) 500 MG TABLET PO SCH ×3 (08:56→16:18)
[2018-06-14] MEDS: predniSONE 20 MG TABLET PO SCH (08:56)
[2018-06-14] MEDS: EZETIMIBE 10 MG TABLET PO SCH (08:57)
[2018-06-14] MEDS: CHOLECALCIFEROL 1,000 UNIT TABLET (VIT D3) PO SCH (08:57)
[2018-06-14] MEDS: ENOXAPARIN SODIUM 40 MG/0.4 ML DISP.SYRIN SQ SCH (08:59)
[2018-06-14] MEDS: SENNOSIDES/DOCUSATE SODIUM 1 TAB TABLET PO SCH (09:03)
[2018-06-14] MEDS: SORBITOL SOLUTION 30 ML PO SCH (09:53)
[2018-06-14] MEDS: LIDOCAINE 5% (PATCH) 1 EA PATCH TP SCH (09:53)
--- NOTE | 2018-06-14 14:45 | NUR ---
RN NOTE: RECEIVED A PHONECALL FROM DR. MCCLURE(ORTHO) AND ACCORDING TO HIM DO NOT SEND THE PATIENT TO MRI FOR NOW BECAUSE HE WILL COME AND SEE THE PATIENT IN THE UNIT. PATIENT MADE AWARE.
--- NOTE | 2018-06-14 15:22 | NUR ---
RN NOTE: DR. MCCLURE CAME BY AND SAW THE PATIENT. PER MD, PATIENT CAN HAVE THE MRI THORACIC AND LUMBAR SPINE WO CONTRAST. PER MD, THE PATIENT HAS NO SIGNS OF WEAKNESS ON THE (L) LOWER LEG. MD WAS INFORMED THAT PATIENT WAS PATIENT AMBULATED THIS MORNING WITH HER WALKER AND WAS WALKING TO THE BATHROOM ONCE IN AWHILE. MD WITH NO NEW ORDER AT THIS TIME. PER MD, HE WILL CHECK THE MRI RESULT LATER TODAY AND IF ANYTHING ABNORMAL ON THE RESULT HE WILL CALL THE NURSE FOR ORDER. PATIENT MADE AWARE.
[2018-06-14 16:00] VITALS: BP 107/63
--- NOTE | 2018-06-14 16:23 | NUR ---
RN NOTE: PATIENT WAS BROUGHT OUT OF THE UNIT VIA WHEELCHAIR TO HAVE THE MRI THORACIC AND LUMBAR SPINE WO CONTRAST. PATIENT ON STABLE CONDITION. REMAINED AWAKE, ALERT AND VERBALLY RESPONSIVE. PATIENT SIGNED THE MRI QUESTIONAIRE.
--- NOTE | 2018-06-14 17:20 | NUR ---
RN NOTE: PATIENT WAS BROUGHT BACK TO HER ROOM 101 VIA WHEELCHAIR. MRI THORACIC AND LUMBAR SPINE WO CONTRAST WAS DONE. AWAITING FOR THE RESULT. PATIENT REMAINED AWAKE, ALERT AND VERBALLY RESPONSIVE.
--- NOTE | 2018-06-14 19:10 | NUR ---
MS/RN INITIAL NOTES RECEIVED PT FROM BATHROOM, AMBULATORY IN STEADY GAIT. A/OX4. ON ROOM AIR, NO SOB NOTED. REPORTED CONSTANT PAIN ON LEFT RIB, PER PT WILL NOTIFY NURSE IF SHE WANTS HER PAIN PILL. RIGHT AC G18 HEPLOCK INTACT AND PATENT. SAFETY MEASURES IN PLACED. CALL LIGHT WITHIN EASY REACH. WILL CONT TO MONITOR
--- NOTE | 2018-06-14 19:37 | NUR ---
RN NOTE: PATIENT REMAINED ON STABLE CONDITION. REPORT WAS GIVEN TO THE PM SHIFT NURSE FOR CONTINUITY OF CARE. PATIENT WAS AMBULATING WITH HER WALKER IN THE UNIT. NO DIZZINESS NOTED. PAIN MANAGED WITH FENTANYL ORDERED AND NO NAUSEA/VOMITING NOTED WELL.
[2018-06-14 20:00] VITALS: BP 112/55
[2018-06-14] MEDS: clonazePAM 1 MG TABLET PO SCH (21:05)
[2018-06-14] MEDS: TRAZODONE 50 MG TABLET PO SCH (21:07)
[2018-06-14] MEDS: ATORVASTATIN 10 MG TABLET PO SCH (21:37)
[2018-06-15] MEDS: ONDANSETRON HCL/PF 4 MG/2 ML VIAL IV PRN ×7 (00:48→23:47)
[2018-06-15] MEDS: FENTANYL PF 100MCG/2ML AMPUL IV PRN ×7 (00:48→23:47)
[2018-06-15 04:00] VITALS: BP 140/64
--- NOTE | 2018-06-15 06:50 | NUR ---
RN NOTES PT IN STABLE CONDITION. NO ACUTE CHANGES THROUGHOUT SHIFT. ALL NEEDS ANTICIPATED, SAFETY MEASURES OBSERVED AT ALL TIMES. ENDORSED TO AM SHIFT RN FOR KALA
--- NOTE | 2018-06-15 07:30 | NUR ---
RN NOTES: RECEIVED PATIENT LYING IN BED. A/O X 4. ABLE TO MAKE NEEDS KNOWN. ON ROOM AIR, BREATHING EVEN AND UNLABORED. "IS IT TIME FOR MY PAIN MEDICINE YET?" - WILL ADMINISTER IF DUE. PATIENT ABLE TO AMBULATE INDEPENDENTLY IN BED. LEFT UPPER SIDE RAIL DOWN PER PATIENT'S REQUEST. ADVISED TO CALL FOR HELP AND ASSISTANCE ESPECIALLY WHEN GETTING OUT OF BED FOR SAFETY. HAS LAC G 20 PATENT AND INTACT W/ NO S/S OF INFECTION/INFILTRATION NOTED. CALL LIGHT W/ REACH. WILL CONTINUE TO MONITOR.
[2018-06-15] MEDS: PANTOPRAZOLE 40 MG TABLET.DR PO SCH (07:53)
[2018-06-15 08:00] VITALS: BP 115/51
[2018-06-15] MEDS: CELECOXIB 100 MG CAPSULE PO SCH ×2 (09:00→21:05)
[2018-06-15 09:02] LABS: BASOPHILS % (AUTO) 0.3 % (0.0-2.0); EOSINOPHILS % (AUTO) 0.4 % (0.0-6.0); HEMATOCRIT 42 % (33-45); HEMOGLOBIN 14.2 g/dL (11.5-14.8); LYMPHOCYTES # (AUTO) 3.3 /CMM (0.8-4.8); LYMPHOCYTES % (AUTO) 34.3 % (20.0-44.0); MEAN CORPUSCULAR HGB CONC 34 g/dl (31.0-36.0); MEAN CORPUSCULAR VOLUME 90 fL (82-100); MONOCYTES # (AUTO) 0.5 /CMM (0.1-1.30); MONOCYTES % (AUTO) 5.7 % (2.0-12.0); NEUTROPHILS # (AUTO) 5.6 /CMM (1.8-8.9); NEUTROPHILS % (AUTO) 59.3 % (43.0-81.0); PLATELET COUNT (AUTO) 258 /CMM (150-450); RED BLOOD CELL COUNT(AUTO) 4.68 MIL/uL (4.0-5.2); WHITE BLOOD COUNT (AUTO) 9.5 K/uL (4.3-11.0)
[2018-06-15 09:10] LABS: CALCIUM, SERUM 9.2 mg/dL (8.5-10.1); CREATININE 0.9 mg/dL (0.6-1.3); POTASSIUM 3.3 mmol/L (3.5-5.1)
--- NOTE | 2018-06-15 10:30 | NUR ---
RN NOTES PATIENT'S MEDICINES ADMINISTERED AT THIS TIME PER PATIENT'S REQUEST. Addendum: 06/15/18 at 1602 by JODY ANTHONY RN EXCEPT CELECOXIB DUE TO " IM STILL ITCHING FROM THE CELECOXIB FROM YESTERDAY
[2018-06-15] MEDS: SORBITOL SOLUTION 30 ML PO SCH (10:36)
[2018-06-15] MEDS: SENNOSIDES/DOCUSATE SODIUM 1 TAB TABLET PO SCH (10:37)
[2018-06-15] MEDS: CHOLECALCIFEROL 1,000 UNIT TABLET (VIT D3) PO SCH (10:37)
[2018-06-15] MEDS: EZETIMIBE 10 MG TABLET PO SCH (10:37)
[2018-06-15] MEDS: predniSONE 20 MG TABLET PO SCH (10:38)
[2018-06-15] MEDS: LIDOCAINE 5% (PATCH) 1 EA PATCH TP SCH (10:38)
[2018-06-15] MEDS: ENOXAPARIN SODIUM 40 MG/0.4 ML DISP.SYRIN SQ SCH (10:40)
[2018-06-15] MEDS: METHOCARBAMOL (500MG) 500 MG TABLET PO SCH ×3 (10:41→17:52)
--- NOTE | 2018-06-15 11:30 | NUR ---
RN NOTES PULLED OUT SECOND VIAL OF PRN ZOFRAN 4 MG DUE TO 1ST VIAL WAS ADMINISTERED THROUGH AN INFILTRATED IV LINE.
[2018-06-15] MEDS: POTASSIUM CHLORIDE 20 MEQ TAB.PRT.SR PO ONE ×2 (11:53→12:41)
[2018-06-15 12:00] VITALS: BP 115/51
[2018-06-15 16:00] VITALS: BP 105/53
--- NOTE | 2018-06-15 19:28 | NUR ---
RN NOTES ENDORSED PATIENT FOR CONTINUITY OF CARE. NO ACUTE CHANGES WITHIN THE SHIFT. NOR ON ANY FORM OF DISTRESS. ALL NURSING NEEDS ATTENDED AND MET. SAFETY MEASURES IN PLACE AT ALL TIMES. CALL LIGHT WITHIN REACH
--- NOTE | 2018-06-15 19:32 | NUR ---
MS RN OPENING NOTES RECEIVED PATIENT LYING IN BED SLEEPING, BUT EASILY AROUSABLE. A/O X 4. ABLE TO MAKE NEEDS KNOWN, PATIET REQUESTS TO SLEEP ON ROOM AIR, BREATHING EVEN AND UNLABORED. NO S/S OF DISTRESS. PATIENT ABLE TO AMBULATE INDEPENDENTLY IN BED. LEFT UPPER SIDE RAIL DOWN PER PATIENT'S REQUEST. ADVISED TO CALL FOR HELP AND ASSISTANCE ESPECIALLY WHEN GETTING OUT OF BED FOR SAFETY. HAS LAC G 20 PATENT AND INTACT W/ NO S/S OF INFECTION/INFILTRATION NOTED. CALL LIGHT W/ REACH. WILL CONTINUE TO MONITOR.
[2018-06-15 20:00] VITALS: BP 140/68
[2018-06-15] MEDS: TRAZODONE 50 MG TABLET PO SCH (21:05)
[2018-06-15] MEDS: clonazePAM 1 MG TABLET PO SCH (21:06)
[2018-06-15] MEDS: ATORVASTATIN 10 MG TABLET PO SCH (21:06)
--- NOTE | 2018-06-16 00:32 | NUR ---
MS/RN NOTES RECEIVED REPORT AND PT. FROM ROSAMARIA MILLER. PT. IS LYING IN BED RESTING. BREATHING EVEN AND UNLABORED ON ROOM AIR. NO SOB, RESPIRATORY DISTRESS OR S/S OF PAIN NOTED AT THIS TIME. PT. WITH LEFT HAND 22 IV SALINE LOCK PRESENT, PATENT AND INTACT. PT. BED LOCKED AND IN LOWEST POSITION, SIDE RAILS UP X2, CALL LIGHT WITHIN REACH, WILL CONTINUE TO MONITOR.
--- NOTE | 2018-06-16 00:37 | NUR ---
MS RN NOTE PATIENT RESTING AROUSES EASILY. NO S/S OF DISTRESS. ALL NEEDS ATTENDED. REPORT GIVEN TO JOSE MARIA BLANK FOR KALA.
[2018-06-16 04:00] VITALS: BP 117/47
[2018-06-16] MEDS: ONDANSETRON HCL/PF 4 MG/2 ML VIAL IV PRN ×6 (04:23→23:49)
[2018-06-16] MEDS: FENTANYL PF 100MCG/2ML AMPUL IV PRN ×5 (04:23→23:49)
--- NOTE | 2018-06-16 06:35 | NUR ---
MS/RN NOTES PT. IS LYING IN BED. AWAKE, ALERT AND ORIENTED X4. BREATHING EVEN AND UNLABORED ON ROOM AIR. NO SOB, RESPIRATORY DISTRESS OR COMPLAINTS OF PAIN NOTED AT THIS TIME. PT. WITH LEFT HAND 22 IV SALINE LOCK PRESENT, PATENT AND INTACT. ALL PT. NEEDS MET. PT. BED LOCKED AND IN LOWEST POSITION, SIDE RAILS UP X2, CALL LIGHT WITHIN REACH, WILL ENDORSE TO DAYSHIFT NURSE FOR CONTINUITY OF CARE.
--- NOTE | 2018-06-16 07:51 | NUR ---
MS RN OPENING NOTES RECEIVED PATIENT IN STABLE CONDITION. IN NO APPARENT DISTRESS. BEDSIDE RAILS ARE UPX2. BED IS LOCKED AND LOWERED. CALL LIGHT IS WITHIN REACH. IV LINE IS INTACT AND PATENT. WILL CONTINUE TO MONITOR PATIENT.
[2018-06-16 08:00] VITALS: BP 155/67
[2018-06-16] MEDS: SORBITOL SOLUTION 30 ML PO SCH (08:22)
[2018-06-16] MEDS: METHOCARBAMOL (500MG) 500 MG TABLET PO SCH ×3 (08:23→16:02)
[2018-06-16] MEDS: CHOLECALCIFEROL 1,000 UNIT TABLET (VIT D3) PO SCH (08:23)
[2018-06-16] MEDS: PANTOPRAZOLE 40 MG TABLET.DR PO SCH (08:23)
[2018-06-16] MEDS: CELECOXIB 100 MG CAPSULE PO SCH ×2 (08:24→22:49)
[2018-06-16] MEDS: predniSONE 20 MG TABLET PO SCH (08:24)
[2018-06-16] MEDS: EZETIMIBE 10 MG TABLET PO SCH (08:24)
[2018-06-16] MEDS: SENNOSIDES/DOCUSATE SODIUM 1 TAB TABLET PO SCH (08:24)
[2018-06-16] MEDS: ENOXAPARIN SODIUM 40 MG/0.4 ML DISP.SYRIN SQ SCH (08:30)
[2018-06-16] MEDS: LIDOCAINE 5% (PATCH) 1 EA PATCH TP SCH (10:46)
[2018-06-16 16:00] VITALS: BP_SYST 111; BP_SYST 92; BP_DIAS 36; BP_DIAS 41
--- NOTE | 2018-06-16 18:40 | NUR ---
MS RN CLOSING NOTES PATIENT IS IN STABLE CONDITION. IN NO APPARENT DISTRESS. BEDSIDE RAILS ARE UPX2. BED IS LOCKED AND LOWERED. CALL LIGHT IS WITHIN REACH. IV LINE IS INTACT AND PATENT. ALL NEEDS WERE MET. WILL ENDORSE CARE TO CUSTODIAL FOREMAN NURSE FOR KALA.
[2018-06-16 20:00] VITALS: BP_SYST 123; BP_DIAS 55; BP_DIAS 63
--- NOTE | 2018-06-16 20:00 | NUR ---
MS/RN NOTES: RECEIVED PT. IN BED SITTING WATCHING TV. A/O X 4. AMBULATORY /CONTINENT OF B/B. DENIES ANY C/O CHEST PAIN OR SOB AT PRESENT. AMBULATORY W/ FWW WALKER. WALKED AROUND THE NURSING STATION. CALL LIGHT W/REACH. WILL CONTINUE TO MONITOR.
[2018-06-16] MEDS: ATORVASTATIN 10 MG TABLET PO SCH (22:49)
[2018-06-16] MEDS: TRAZODONE 50 MG TABLET PO SCH (22:49)
[2018-06-16] MEDS: clonazePAM 1 MG TABLET PO SCH (22:49)
[2018-06-17 04:00] VITALS: BP_SYST 129; BP_SYST 140; BP_DIAS 70; BP_DIAS 72
[2018-06-17] MEDS: ONDANSETRON HCL/PF 4 MG/2 ML VIAL IV PRN ×6 (04:47→21:43)
[2018-06-17] MEDS: FENTANYL PF 100MCG/2ML AMPUL IV PRN ×6 (04:47→21:44)
--- NOTE | 2018-06-17 07:18 | NUR ---
MS/RN NOTES: REPORT GIVEN TO NEXT SHIFT NURSE FOR KALA.
--- NOTE | 2018-06-17 07:20 | NUR ---
RN NOTES RECEIVED PATIENT AWAKE ALERT AND VERBALLY RESPONSIVE, ABLE TO MAKE NEEDS KNOWN. RESPIRATIONS EVEN AND UNLABORED, CURRENTLY ON PAIN MANAGEMENT. IV ACCESS TO BE CHANGED TODAY PER PT REQUEST. KEPT CLEAN DRY AND COMFORTABLE, CALL LIGHT WITHIN EASY REACH WILL CONTINUE TO MONITOR.
[2018-06-17 08:00] VITALS: BP 118/69
[2018-06-17] MEDS: PANTOPRAZOLE 40 MG TABLET.DR PO SCH (08:07)
[2018-06-17] MEDS: CHOLECALCIFEROL 1,000 UNIT TABLET (VIT D3) PO SCH (08:42)
[2018-06-17] MEDS: CELECOXIB 100 MG CAPSULE PO SCH ×2 (08:42→21:41)
[2018-06-17] MEDS: SENNOSIDES/DOCUSATE SODIUM 1 TAB TABLET PO SCH (08:43)
[2018-06-17] MEDS: METHOCARBAMOL (500MG) 500 MG TABLET PO SCH ×3 (08:43→17:02)
[2018-06-17] MEDS: predniSONE 20 MG TABLET PO SCH (08:43)
[2018-06-17] MEDS: EZETIMIBE 10 MG TABLET PO SCH (08:43)
[2018-06-17] MEDS: ENOXAPARIN SODIUM 40 MG/0.4 ML DISP.SYRIN SQ SCH (09:24)
[2018-06-17] MEDS: LIDOCAINE 5% (PATCH) 1 EA PATCH TP SCH (10:13)
[2018-06-17] MEDS: SORBITOL SOLUTION 30 ML PO SCH (10:41)
[2018-06-17] MEDS ORDERED: LIDOCAINE HCL/PF 1% 30 ML SDV IJ STA (14:04)
[2018-06-17 16:00] VITALS: BP 132/74
--- NOTE | 2018-06-17 19:16 | NUR ---
RN NOTES PATIENT AWAKE ALERT AND VERBALLY RESPONSIVE, ABLE TO MAKE NEEDS KNOWN. RESPIRATIONS EVEN AND UNLABORED, CURRENTLY ON PAIN MANAGEMENT. MIDLINE TO LEFT UPPERARM PATENT AND INTACT NO REDNESS OR INFILTRATION NOTED. KEPT CLEAN DRY AND COMFORTABLE, CALL LIGHT WITHIN EASY REACH WILL CONTINUE TO MONITOR AND ENDORSE TO NEXT SHIFT FOR CONTINUITY OF CARE
[2018-06-17 20:00] VITALS: BP 132/74
--- NOTE | 2018-06-17 20:00 | NUR ---
MS/RN OPENING NOTES RECEIVED PATIENT AWAKE, ALERT X4, ABLE TO VERBALIZE NEEDS, RESPONSIVE AND PARTICIPATIVE TO CARE, ON PAIN MANAGEMENT MONITORING AND PAIN DUE TO RIBS FX, COMPLAINING OF PAIN IN ANTERIOR AND POSTERIOR BACK, WILL MONITOR, KEPT COMFORTABLE, ATTENDS TO NEEDS, WITH BRP. CALL LIGHTS WITHIN REACH, BED LOCKED.RECEIVED ENDORSEMENT FROM AM RN FOR KALA. MIDLINE IV ON ABLE TO FLUSH. RESPIRATIONS EVEN AND UNLABORED. ON ROOM AIR.
[2018-06-17] MEDS: ATORVASTATIN 10 MG TABLET PO SCH (21:42)
[2018-06-17] MEDS: TRAZODONE 50 MG TABLET PO SCH (21:42)
[2018-06-17] MEDS: clonazePAM 1 MG TABLET PO SCH (21:42)
--- NOTE | 2018-06-17 22:30 | NUR ---
ms/rn notes PAIN MEDICATION GIVEN NEEDED FENTANYL 25MCG/0.5ML PRN FOR REPORTED SEVERE PAIN ON RIB MID/BACK. TO MONITOR PAIN RELIEF.PATIETN AWAKE, ALERT, ON ROOM AIR.
[2018-06-18] VITALS: BP 122/78
[2018-06-18] MEDS: ONDANSETRON HCL/PF 4 MG/2 ML VIAL IV PRN ×6 (01:26→21:05)
[2018-06-18] MEDS: FENTANYL PF 100MCG/2ML AMPUL IV PRN ×6 (01:26→21:05)
--- NOTE | 2018-06-18 01:50 | NUR ---
MS/RN NOTES PATIETN AWOKEN FROM SLEEP, WALK TO BATHROON, PAIN REPORTED WITH NEEDED PAIN MEDICATION FENTANYL 25MCG/0.5ML FOR SEVERE PAIN IN RIB.WILL MONITOR.
[2018-06-18 04:00] VITALS: BP 127/77
--- NOTE | 2018-06-18 05:15 | NUR ---
MS/RN NOTES PAIN REPORTED SEVERE ON MID/LOWER BACK, TOLERATED IV FENTANYL 25MCG/0.5ML/ AWAKE, ALERT, RESPIRATIONS EVEN AND UNLABORED. WILL MONITOR.
--- NOTE | 2018-06-18 05:51 | NUR ---
105-1MS/RN NOTES PATIENT AWAKE, ABLE TO SLEEP FEW HOURS, ON PAIN MONITOIRNG , MEDICATION GIVEN, ABLE TO TOLERATE W./ NO S/S OF COMPLICATION, KEPT COMFORTABLE.,RESPIRATIONS EVEN AND UNLABORED, WILL MONITOR.
[2018-06-18] MEDS: PANTOPRAZOLE 40 MG TABLET.DR PO SCH (07:41)
[2018-06-18 08:00] VITALS: BP 125/63
[2018-06-18] MEDS: SORBITOL SOLUTION 30 ML PO SCH (09:35)
[2018-06-18] MEDS: METHOCARBAMOL (500MG) 500 MG TABLET PO SCH ×3 (09:36→16:07)
[2018-06-18] MEDS: LIDOCAINE 5% (PATCH) 1 EA PATCH TP SCH (09:42)
[2018-06-18] MEDS: EZETIMIBE 10 MG TABLET PO SCH (09:45)
[2018-06-18] MEDS: CELECOXIB 100 MG CAPSULE PO SCH ×2 (09:45→21:06)
[2018-06-18] MEDS: predniSONE 20 MG TABLET PO SCH (09:46)
[2018-06-18] MEDS: CHOLECALCIFEROL 1,000 UNIT TABLET (VIT D3) PO SCH (09:48)
[2018-06-18] MEDS: SENNOSIDES/DOCUSATE SODIUM 1 TAB TABLET PO SCH (09:49)
[2018-06-18] MEDS: ENOXAPARIN SODIUM 40 MG/0.4 ML DISP.SYRIN SQ SCH (09:54)
[2018-06-18 16:00] VITALS: BP 126/65
--- NOTE | 2018-06-18 19:30 | NUR ---
RN CLOSING NOTES PATIENT IN STABLE CONDITION. ALL NEEDS ATTENDED AND PROVIDED. ASSISTED PATIENT WITH ADLS. KEPT PATIENT SAFE AND COMFORTABLE. BED IN LOW/LOCKED POSITION, SIDERAILS UPX2, CALL LIGHT IN REACH. ENDORSED TO NIGHT RN FOR KALA.
[2018-06-18 20:00] VITALS: BP 165/85
--- NOTE | 2018-06-18 20:00 | NUR ---
ms rn notes received pts in bed a/o x4 no sob no distress noted . ambulatory,on r/a sating 95% all needs attended too call light within reach , due meds given as ordered ,kept pts clean dry and comfortable,will continue to monitor pts.
[2018-06-18] MEDS: clonazePAM 1 MG TABLET PO SCH (21:06)
[2018-06-18] MEDS: ATORVASTATIN 10 MG TABLET PO SCH (21:06)
[2018-06-18] MEDS: TRAZODONE 50 MG TABLET PO SCH (21:07)
--- NOTE | 2018-06-18 22:25 | NUR ---
ms rn notes transfer care and report given to babar gonsalves,
--- NOTE | 2018-06-18 22:48 | NUR ---
TRANSFER OF CARE RECEIVE PT AT BED A/OX 3, COURTESY VAN DRIVERCARTRIDGE LOADER ENDORSE POC. PT NOT IN DISTRESS, STABLE CONDITION. WILL CONT TO MTR
[2018-06-19 04:00] VITALS: BP 128/60
[2018-06-19] MEDS: FENTANYL PF 100MCG/2ML AMPUL IV PRN ×5 (04:18→22:59)
[2018-06-19] MEDS: ONDANSETRON HCL/PF 4 MG/2 ML VIAL IV PRN ×5 (04:19→23:00)
--- NOTE | 2018-06-19 04:36 | NUR ---
MS RN NOTES' PT CLAIMED SHE HIT HER HEAD AT THE SIDE TABLE WHILE PICKING UP HER BELONGING, ASSESS PT HEAD NO ABRASION AND NO BUMP, NO ALTERED LOC. NO HEADACHE, NO S/S OF BLEEDING. PT REFUSED TO CALL M.D. EXPLAINED RISKS AND BENEFITS BUT PT STILL REFUSED. EXPLAINED TO CALL NURSE IF SHE NEEDS ANYTHING. VERBALIZED UNDERSTANDING.
--- NOTE | 2018-06-19 06:21 | NUR ---
RN CLOSING NOTE ASLEEP AND EASILY AWAKEN. NOT IN DISTRESS, NO CHANGE LOC. STABLE. NEEDS ATTENDED AND ANTICIPATED, KEPT CLEAN AND DRY AND COMFORT. NURSING CARE RENDERED, SAFETY MEASURES IN PLACE, BED IN LOW LOCKED POSITION, CALL LIGHT WITHIN EASY REACH. ENDORSE TO NEXT SHIFT CONTINUITY OF CARE. Addendum: 06/19/18 at 0622 by YOBANI ALLEN RN NO COMPLAIN OF PAIN
--- NOTE | 2018-06-19 07:00 | NUR ---
MS RN OPENING NOTES RECEIVED PT LYING ON BED.ALERT/ORIENTED X4.ON ROOM AIR,TOLERATING WELL.NO SOB AND ACUTE DISTRESS NOTED.MIDLINE IS ON LEFT UA,SITE IS CLEAN,DRY AND INTACT.NO INFILTRATION NOTED.MILD PAIN NOTED.DENIES PAIN MEDICINE NOW.SAFETY IS MAINTAINED AT ALL TIMES.BED IS IN LOW POSITION AND LOCKED,CALL LIGHT IS WITHIN REACH.WILL CONTINUE TO MONITOR THE PT CLOSELY.
[2018-06-19 07:21] LABS: BASOPHILS % (AUTO) 0.1 % (0.0-2.0); EOSINOPHILS % (AUTO) 0.3 % (0.0-6.0); HEMATOCRIT 37 % (33-45); HEMOGLOBIN 12.5 g/dL (11.5-14.8); LYMPHOCYTES # (AUTO) 2.3 /CMM (0.8-4.8); MEAN CORPUSCULAR HGB CONC 34 g/dl (31.0-36.0); MEAN CORPUSCULAR VOLUME 91 fL (82-100); MONOCYTES # (AUTO) 0.8 /CMM (0.1-1.30); MONOCYTES % (AUTO) 6.7 % (2.0-12.0); NEUTROPHILS # (AUTO) 8.2 /CMM (1.8-8.9); NEUTROPHILS % (AUTO) 72.9 % (43.0-81.0); PLATELET COUNT (AUTO) 228 /CMM (150-450); WHITE BLOOD COUNT (AUTO) 11.3 K/uL (4.3-11.0)
[2018-06-19] MEDS: PANTOPRAZOLE 40 MG TABLET.DR PO SCH (07:30)
[2018-06-19 07:39] LABS: CALCIUM, SERUM 8.9 mg/dL (8.5-10.1); CREATININE 0.6 mg/dL (0.6-1.3); POTASSIUM 4.2 mmol/L (3.5-5.1)
[2018-06-19 08:00] VITALS: BP 148/74
[2018-06-19] MEDS: EZETIMIBE 10 MG TABLET PO SCH (08:24)
[2018-06-19] MEDS: predniSONE 20 MG TABLET PO SCH (08:24)
[2018-06-19] MEDS: SENNOSIDES/DOCUSATE SODIUM 1 TAB TABLET PO SCH (08:24)
[2018-06-19] MEDS: CHOLECALCIFEROL 1,000 UNIT TABLET (VIT D3) PO SCH (08:24)
[2018-06-19] MEDS: SORBITOL SOLUTION 30 ML PO SCH (08:25)
[2018-06-19] MEDS: METHOCARBAMOL (500MG) 500 MG TABLET PO SCH ×3 (08:25→16:47)
[2018-06-19] MEDS: CELECOXIB 100 MG CAPSULE PO SCH ×2 (08:25→20:58)
[2018-06-19] MEDS: ENOXAPARIN SODIUM 40 MG/0.4 ML DISP.SYRIN SQ SCH (08:38)
--- NOTE | 2018-06-19 09:05 | NUR ---
MS ROSAMARIA NOTES KALA GIVEN TO ROSAMARIA COATS.ALL THE DUE MEDS ARE GIVEN.
--- NOTE | 2018-06-19 09:10 | NUR ---
RN MS NOTES HAND OFF REPORT GIVEN BY BLAISE BLANK
[2018-06-19] MEDS: LIDOCAINE 5% (PATCH) 1 EA PATCH TP SCH (10:35)
[2018-06-19 16:00] VITALS: BP 130/59
--- NOTE | 2018-06-19 19:01 | NUR ---
RN MS CLOSING NOTES REPORT GIVEN TO NOC. NO SIGNIFICANT CHANGES THROUGHOUT SHIFT. PATIENT AMBULATORY IN THE HALLS AND ROOM WITH MODERATE PAIN. ALL SAFETY PRECAUTIONS IN PLACE AND ALL NEEDS MET. CALL LIGHT WITHIN REACH WILL ENDORSE TO NOC
[2018-06-19 20:00] VITALS: BP 133/65
--- NOTE | 2018-06-19 20:00 | NUR ---
ms rn notes received pts in bed awake alert and verbally responsive ,ambulatory ,no sob no distress noted v/s stable afebrile , due meds given as ordered, seen and examine by dr dre gonzalez mgt, with new oders and carried out,kept pts clean dry and comfortable.will continue to monitor.
[2018-06-19] MEDS ORDERED: METHADONE HCL 10 MG TABLET PO PRN (20:30)
[2018-06-19] MEDS: clonazePAM 1 MG TABLET PO SCH (21:01)
[2018-06-19] MEDS: TRAZODONE 50 MG TABLET PO SCH (21:01)
[2018-06-19] MEDS: ATORVASTATIN 10 MG TABLET PO SCH (21:02)
[2018-06-20 04:00] VITALS: BP 138/89
[2018-06-20] MEDS: FENTANYL PF 100MCG/2ML AMPUL IV PRN ×3 (06:33→22:36)
[2018-06-20] MEDS: ONDANSETRON HCL/PF 4 MG/2 ML VIAL IV PRN ×3 (06:33→22:36)
--- NOTE | 2018-06-20 07:18 | NUR ---
RN MS OPENING NOTES RECEIVED BEDSIDE REPORT PATIENT AWAKE AND ALERT X4. NO SIGNS OR SYMPTOMS OF RESPIRATORY DISTRESS ON ROOM AIR. C/O CHRONIC PAIN 09/08 LAST FENTANYL GIVEN @ 0500. AMBULATORY ON UNIT AND IN ROOM. MIDLINE TO CANDE #18 GAUGE SALINE LOCK. NO C/O NAUSEA VOMITING OR DIARRHEA. SAFETY PRECAUTIONS IN PLACE BED IN LOW POSITION CALL LIGHT WITHIN REACH WILL CONT TO MONITOR
[2018-06-20 08:00] VITALS: BP 127/73
[2018-06-20] MEDS: METHOCARBAMOL (500MG) 500 MG TABLET PO SCH ×3 (08:05→18:01)
[2018-06-20] MEDS: CELECOXIB 100 MG CAPSULE PO SCH ×2 (08:05→22:00)
[2018-06-20] MEDS: EZETIMIBE 10 MG TABLET PO SCH (08:05)
[2018-06-20] MEDS: SENNOSIDES/DOCUSATE SODIUM 1 TAB TABLET PO SCH (08:05)
[2018-06-20] MEDS: PANTOPRAZOLE 40 MG TABLET.DR PO SCH (08:06)
[2018-06-20] MEDS: predniSONE 20 MG TABLET PO SCH (08:06)
[2018-06-20] MEDS: CHOLECALCIFEROL 1,000 UNIT TABLET (VIT D3) PO SCH (08:06)
[2018-06-20] MEDS: LIDOCAINE 5% (PATCH) 1 EA PATCH TP SCH (08:07)
[2018-06-20] MEDS: SORBITOL SOLUTION 30 ML PO SCH (08:07)
[2018-06-20] MEDS: ENOXAPARIN SODIUM 40 MG/0.4 ML DISP.SYRIN SQ SCH (08:08)
[2018-06-20 09:00] VITALS: BP 127/73
--- NOTE | 2018-06-20 10:28 | NUR ---
RN MS NOTES PT GIVEN 5 MG METHADONE. NO ADVERSE REACTION NOTED PATIENT ASLEEP ABLE TO AROUSE
--- NOTE | 2018-06-20 11:14 | NUR ---
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
[2018-06-20 16:00] VITALS: BP 110/56
--- NOTE | 2018-06-20 19:10 | NUR ---
RN MS CLOSING NOTES REPORT GIVEN TO NOC. NO SIGNIFICANT CHANGES THROUGHOUT SHIFT ORDER FOR METHADONE D/C DR ZAVALA AWARE OF REACTION. LAST DOSE OF FENTANYL/ZOFRAN @ 1406. PATIENT AMBULATORY IN THE HALLS AND ROOM WITH MODERATE PAIN. ALL SAFETY PRECAUTIONS IN PLACE AND ALL NEEDS MET. CALL LIGHT WITHIN REACH WILL ENDORSE TO NOC
[2018-06-20] MEDS: TRAZODONE 50 MG TABLET PO SCH (21:59)
[2018-06-20] MEDS: ATORVASTATIN 10 MG TABLET PO SCH (22:00)
[2018-06-20] MEDS: clonazePAM 1 MG TABLET PO SCH (22:00)
[2018-06-21] VITALS: BP 122/55
[2018-06-21 04:00] VITALS: BP 122/46
[2018-06-21] MEDS: FENTANYL PF 100MCG/2ML AMPUL IV PRN ×3 (04:37→18:13)
[2018-06-21] MEDS: ONDANSETRON HCL/PF 4 MG/2 ML VIAL IV PRN ×3 (04:37→18:13)
--- NOTE | 2018-06-21 07:00 | NUR ---
had uneventful night, states slept some after all
--- NOTE | 2018-06-21 07:50 | NUR ---
RN MS OPENING NOTES RECEIVED BEDSIDE REPORT PATIENT AWAKE AND ALERT X4. NO SIGNS OR SYMPTOMS OF RESPIRATORY DISTRESS ON ROOM AIR. C/O CHRONIC PAIN 09/08 LAST FENTANYL GIVEN @ 0600. AMBULATORY ON UNIT AND IN ROOM. MIDLINE TO CANDE #18 GAUGE SALINE LOCK. NO C/O NAUSEA VOMITING OR DIARRHEA. SAFETY PRECAUTIONS IN PLACE BED IN LOW POSITION CALL LIGHT WITHIN REACH WILL CONT TO MONITOR
[2018-06-21 08:00] VITALS: BP 99/46
[2018-06-21 08:04] VITALS: BP 99/46
[2018-06-21] MEDS: METHOCARBAMOL (500MG) 500 MG TABLET PO SCH ×3 (08:47→17:04)
[2018-06-21] MEDS: PANTOPRAZOLE 40 MG TABLET.DR PO SCH (08:47)
[2018-06-21] MEDS: EZETIMIBE 10 MG TABLET PO SCH (08:47)
[2018-06-21] MEDS: predniSONE 20 MG TABLET PO SCH (08:47)
[2018-06-21] MEDS: CHOLECALCIFEROL 1,000 UNIT TABLET (VIT D3) PO SCH (08:47)
[2018-06-21] MEDS: SORBITOL SOLUTION 30 ML PO SCH (08:48)
[2018-06-21] MEDS: CELECOXIB 100 MG CAPSULE PO SCH ×2 (08:48→22:14)
[2018-06-21] MEDS: SENNOSIDES/DOCUSATE SODIUM 1 TAB TABLET PO SCH (08:48)
[2018-06-21] MEDS: ENOXAPARIN SODIUM 40 MG/0.4 ML DISP.SYRIN SQ SCH (08:49)
[2018-06-21] MEDS: LIDOCAINE 5% (PATCH) 1 EA PATCH TP SCH (08:50)
[2018-06-21 16:00] VITALS: BP_SYST 114; BP_DIAS 52; BP_DIAS 54
--- NOTE | 2018-06-21 19:08 | NUR ---
RN MS CLOSING NOTES REPORT GIVEN TO NOC. NO SIGNIFICANT CHANGES THROUGHOUT SHIFT LAST DOSE OF FENTANYL/ZOFRAN @ 1813. PATIENT AMBULATORY IN THE HALLS AND ROOM WITH MODERATE PAIN. ALL SAFETY PRECAUTIONS IN PLACE AND ALL NEEDS MET CALL LIGHT WITHIN REACH WILL ENDORSE TO NOC
--- NOTE | 2018-06-21 19:45 | NUR ---
RN NOTES RECEIVED BEDSIDE REPORT PATIENT AWAKE AND ALERT X4. NO SIGNS OR SYMPTOMS OF ACUTE RESPIRATORY DISTRESS ON ROOM AIR. AMBULATORY ON UNIT AND IN ROOM. MIDLINE TO CANDE #18 GAUGE SALINE LOCK. SECURED, INTACT AND PATENT, NO C/O NAUSEA VOMITING OR DIARRHEA. SAFETY PRECAUTIONS IN PLACED BED IN LOW POSITION CALL LIGHT WITHIN REACH WILL CONTINUE TO MONITOR ACCORDINGLY.
[2018-06-21] MEDS: ATORVASTATIN 10 MG TABLET PO SCH (22:14)
[2018-06-21] MEDS: clonazePAM 1 MG TABLET PO SCH (22:15)
[2018-06-21] MEDS: TRAZODONE 50 MG TABLET PO SCH (22:15)
[2018-06-22] VITALS: BP 121/69
[2018-06-22] MEDS: FENTANYL PF 100MCG/2ML AMPUL IV PRN ×3 (02:17→15:29)
--- NOTE | 2018-06-22 02:17 | NUR ---
RN NOTES COMPLAINTS OF LEFT RIB CAGE PAIN WITH A SCALE OF 9/10, ASSESSED VITAL SIGNS, FENTANYL AND ZOFRAN GIVEN PER MD ORDER PRN PER PATIENT REQUEST. WILL CONTINUE TO MONITOR.
[2018-06-22] MEDS: ONDANSETRON HCL/PF 4 MG/2 ML VIAL IV PRN ×3 (02:18→15:29)
--- NOTE | 2018-06-22 06:58 | NUR ---
RN NOTES ABLE TO REST AND SLEEP WITH LONG INTERVALS, ALL NEEDS ATTENDED AND MET, WILL ENDORSE TO AM NURSE FOR CONTINUITY OF CARE.
--- NOTE | 2018-06-22 07:27 | NUR ---
RN MS OPENING NOTES RECEIVED BEDSIDE REPORT PATIENT ASLEEP ABLE TO AROUSE WITH VOICE AND TOUCH ALERT X4. NO SIGNS OR SYMPTOMS OF RESPIRATORY DISTRESS ON ROOM AIR. C/O CHRONIC PAIN 09/08 LAST FENTANYL GIVEN @ 0217 AMBULATORY ON UNIT AND IN ROOM. MIDLINE TO CANDE #18 GAUGE SALINE LOCK. NO C/O NAUSEA VOMITING OR DIARRHEA. SAFETY PRECAUTIONS IN PLACE BED IN LOW POSITION CALL LIGHT WITHIN REACH WILL CONT TO MONITOR
--- NOTE | 2018-06-22 07:40 | NUR ---
RN MS NOTES PT COMPLAINED ROOM LOCATION TO NOISY. MOVED TO ROOM 102
[2018-06-22 07:57] VITALS: BP 149/84
[2018-06-22 08:00] VITALS: BP 149/84
[2018-06-22 08:01] VITALS: BP 149/84
[2018-06-22] MEDS: SENNOSIDES/DOCUSATE SODIUM 1 TAB TABLET PO SCH (08:35)
[2018-06-22] MEDS: predniSONE 20 MG TABLET PO SCH (08:36)
[2018-06-22] MEDS: CELECOXIB 100 MG CAPSULE PO SCH ×2 (08:36→22:19)
[2018-06-22] MEDS: METHOCARBAMOL (500MG) 500 MG TABLET PO SCH ×3 (08:36→17:07)
[2018-06-22] MEDS: PANTOPRAZOLE 40 MG TABLET.DR PO SCH (08:36)
[2018-06-22] MEDS: CHOLECALCIFEROL 1,000 UNIT TABLET (VIT D3) PO SCH (08:36)
[2018-06-22] MEDS: EZETIMIBE 10 MG TABLET PO SCH (08:36)
[2018-06-22] MEDS: SORBITOL SOLUTION 30 ML PO SCH (08:37)
[2018-06-22] MEDS: LIDOCAINE 5% (PATCH) 1 EA PATCH TP SCH (08:40)
[2018-06-22] MEDS: ENOXAPARIN SODIUM 40 MG/0.4 ML DISP.SYRIN SQ SCH ×2 (08:52→13:38)
--- NOTE | 2018-06-22 08:56 | NUR ---
RN MS NOTES PT REFUSED LOVENOX. PT AMBULAOTRY ON UNIT AND IN ROOM THROUGH OUT DAY AND NIGHT
--- NOTE | 2018-06-22 13:00 | NUR ---
RN MS NOTES ASH CONVEYOR OPERATOR YOLANDE GANDARA TO SEE PATIENT. CONT PAIN MANAGEMENT AWAITING DISCHARGE ORDERS FROM PRIMARY DOCTOR SALLY
[2018-06-22 16:00] VITALS: BP_SYST 122; BP_SYST 139; BP_DIAS 54; BP_DIAS 64
--- NOTE | 2018-06-22 19:00 | NUR ---
RN MS CLOSING NOTES REPORT GIVEN TO NOC. NO SIGNIFICANT CHANGES THROUGHOUT SHIFT LAST DOSE OF FENTANYL/ZOFRAN @ 1529 PATIENT AMBULATORY IN THE HALLS AND ROOM WITH MODERATE PAIN. ALL SAFETY PRECAUTIONS IN PLACE AND ALL NEEDS MET CALL LIGHT WITHIN REACH WILL ENDORSE TO NOC
--- NOTE | 2018-06-22 19:15 | NUR ---
MS/RN OPENING NOTES PT RECEIVED AWAKE, HOB ELEVATED, WATCHING TV. ON ROOM AIR, BREATHING EVEN AND UNLABORED. DENIES SOB, IN NO ACUTE DISTRESS. NOTES 5-09/08 PAIN TO BACK. DOES NOT WANT PAIN MEDICATION AT THIS TIME. CANDE MIDLINE PATENT AND INTACT. BED IN LOW/LOCKED POSITION WITH CALL LIGHT IN REACH. BILATERAL UPPER SIDE RAILS IN PLACE. NO NEEDS EXPRESSED AT THIS TIME. WILL CONTINUE TO MONITOR
[2018-06-22 20:00] VITALS: BP 107/48
--- NOTE | 2018-06-22 21:30 | NUR ---
MS/RN NOTES PT ROUNDS PERFORMED. NO NEEDS EXPRESSED AT THIS TIME. WILL CONTINUE TO MONITOR
[2018-06-22] MEDS: ATORVASTATIN 10 MG TABLET PO SCH (22:19)
[2018-06-22] MEDS: clonazePAM 1 MG TABLET PO SCH (22:19)
[2018-06-22] MEDS: TRAZODONE 50 MG TABLET PO SCH (22:19)
[2018-06-23] VITALS (10 sets, daily range): BP systolic 97–144; BP diastolic 46–72
[2018-06-23] MEDS: ONDANSETRON HCL/PF 4 MG/2 ML VIAL IV PRN ×2 (00:55→15:50)
[2018-06-23] MEDS: FENTANYL PF 100MCG/2ML AMPUL IV PRN ×2 (01:06→15:51)
--- NOTE | 2018-06-23 02:38 | NUR ---
MS/RN NOTES PT ASLEEP, BREATHING EVEN AND UNLABORED. IN NO ACUTE DISTRESS. WILL CONTINUE TO MONITOR
--- NOTE | 2018-06-23 06:39 | NUR ---
MS/RN CLOSING NOTES PT ASLEEP. OPENS EYES TO NAME. REMAINS ON ROOM AIR, BREATHING EVEN AND UNLABORED. DENIES SOB, PAIN TO BACK AND LEFT RIB CAGE 4-5/10, NO PAIN MEDICATION WANTED AT THIS TIME. IN NO ACUTE DISTRESS. SLEPT WELL DURING SHIFT. CANDE MIDLINE PATENT AND INTACT. AMBULATED WITH WALKER IN HALLWAY. NO SIGNIFICANT CHANGES OVERNIGHT. BED REMAINS IN LOW/LOCKED POSITION WITH CALL LIGHT IN REACH AND BILATERAL UPPER SIDE RAILS IN PLACE. ISOLATION PRECAUTIONS IMPLEMENTED. WILL ENDORSE TO DAY SHIFT RN KALA.
--- NOTE | 2018-06-23 07:37 | NUR ---
MS RN Opening Notes Patient asleep, resting in bed. Semi-Fowlers position. Alert and oriented x4, able to make needs known. No complaints of shortness of breath, chest pain or pain at this time. Respirations even and unlabored on room air, no acute distress noted. Midline to the left upper arm 18 gauge, intact, patent and saline locked. Updated patient on current plan of care and safety measures. Patient verbalized understanding. Safety and fall precautions in place: bed in lowest and locked position, side rails up x2, bed alarm on, call light and personal possessions within reach. Will continue to monitor and intervene as needed.
[2018-06-23] MEDS: METHOCARBAMOL (500MG) 500 MG TABLET PO SCH ×3 (08:23→16:08)
[2018-06-23] MEDS: PANTOPRAZOLE 40 MG TABLET.DR PO SCH (08:23)
[2018-06-23] MEDS: CELECOXIB 100 MG CAPSULE PO SCH ×2 (08:23→22:34)
[2018-06-23] MEDS: CHOLECALCIFEROL 1,000 UNIT TABLET (VIT D3) PO SCH (08:24)
[2018-06-23] MEDS: SORBITOL SOLUTION 30 ML PO SCH (08:24)
[2018-06-23] MEDS: EZETIMIBE 10 MG TABLET PO SCH (08:24)
[2018-06-23] MEDS: SENNOSIDES/DOCUSATE SODIUM 1 TAB TABLET PO SCH (08:24)
[2018-06-23] MEDS: predniSONE 20 MG TABLET PO SCH (08:24)
[2018-06-23] MEDS: ENOXAPARIN SODIUM 40 MG/0.4 ML DISP.SYRIN SQ SCH (08:41)
[2018-06-23] MEDS: LIDOCAINE 5% (PATCH) 1 EA PATCH TP SCH (09:35)
--- NOTE | 2018-06-23 11:39 | NUR ---
Patient ambulated around unit with front-wheeled walker and stand-by assist. Steady gait. No dizziness or shortness of breath noted. Returned to room safely. Will continue to monitor.
--- NOTE | 2018-06-23 16:34 | NUR ---
Report given to ROSAMARIA Caicedo for continuity of care. Patient currently asleep, vital signs stable.
--- NOTE | 2018-06-23 16:40 | NUR ---
MS RN ASSUMPTION OF CARE RECEIVED PT FROM ROSAMARIA JUAREZ FOR ASSUMPTION OF CARE. PT IS A/OX4, DENIES CHEST PAIN,SOB, N/V, BREATHING IS EVEN AND UNLABORED ON ROOM AIR. LEFT UPPER ARM MIDLINE IS PATENT, CLEAN, DRY AND INTACT. PT RATES PAIN 5/10 AFTER RECEIVING FENTANYL 25MCG @ 1600 FROM PREVIOUS NURSE AND TOLERABLE AT THIS TIME. ALL NEEDS ATTENDED TO. BED IS LOCKED AND IN LOWEST POSITION, SIDE RAILS UPX2, CALL LIGHT AND POSSESSIONS WITHIN REACH.
--- NOTE | 2018-06-23 18:12 | NUR ---
MS RN CLOSING NOTE PT SITTING UP IN BED. PT IS A/OX4, DENIES CHEST PAIN, SOB, N/V, BREATHING IS EVEN AND UNLABORED ON ROOM AIR. LEFT UPPER ARM MIDLINE IS PATENT, CLEAN, DRY AND INTACT. NO ACUTE DISTRESS NOTED. PT AMBULATED X1 AROUND UNIT W/ WALKER SINCE THE RN ASSUMED CARE. ALL NEEDS ATTENDED TO. BED IS LOCKED AND IN LOWEST POSITION, SIDE RAILS UPX2, CALL LIGHT AND POSSESSIONS WITHIN REACH. WILL ENDORSE TO SUPPORT TEAM ASSOC NURSE FOR CONTINUITY OF CARE.
[2018-06-23] MEDS: ATORVASTATIN 10 MG TABLET PO SCH (22:34)
[2018-06-23] MEDS: TRAZODONE 50 MG TABLET PO SCH (22:34)
[2018-06-23] MEDS: clonazePAM 1 MG TABLET PO SCH (22:35)
[2018-06-24] MEDS: ONDANSETRON HCL/PF 4 MG/2 ML VIAL IV PRN ×3 (02:47→17:47)
[2018-06-24] MEDS: FENTANYL PF 100MCG/2ML AMPUL IV PRN ×3 (02:50→17:47)
[2018-06-24 04:00] VITALS: BP 117/53
--- NOTE | 2018-06-24 07:04 | NUR ---
RN CLOSING NOTES PATIENT WITH NO ACUTE DISTRESS OBSERVED OVERNIGHT. FALL AND SAFETY PRECAUTIONS AT ALL TIMES. AMBULATES WITH FWW. MEDICATED WITH PRN FENTANYL FOR BREAKTHROUGH PAIN, WITH GOOD EFFECT. ORTHOSTATIC VS DONE, PATIENT'S BP DROPS WHEN SUPINE, OUTPATIENT F/UP PLANNED WITH DR. ATKINS. D/C PLANNING CONTINUES WITH PAIN MANAGEMENT C/O DR. MARRERO.
--- NOTE | 2018-06-24 07:30 | NUR ---
RN NOTE: RECEIVED PATIENT IN BED, AWAKE, ALERT AND VERBALLY RESPONSIVE. RESPIRATION EVEN AND UNLABORED SATURATING 95% IN ROOM AIR. AFEBRILE. SKIN WARM TO TOUCH. HOB ELEVATED AT 35 DEGREE. PATIENT VERBALIZED PAIN AT THIS TIME WAS BEING MANAGED BY HER CURRENT PAIN MEDICATIONS AND RATED PAIN AT 4/10 ON THE (L) LOWER RIB, BUT IT'S TOLERABLE AT THIS TIME. (L) UA MIDLINE NOTED PATENT AND INTACT WITH 2 LUMENS FLUSHED WITH 5 CC OF NS. BED LOCKED AT ALL TIMES AND ON LOWEST POSITION. CALL LIGHT WITHIN REACH. NEEDS ANTICIPATED.
[2018-06-24] MEDS: PANTOPRAZOLE 40 MG TABLET.DR PO SCH (07:39)
[2018-06-24 08:00] VITALS: BP 104/53
[2018-06-24] MEDS: predniSONE 20 MG TABLET PO SCH (09:24)
[2018-06-24] MEDS: METHOCARBAMOL (500MG) 500 MG TABLET PO SCH ×3 (09:24→16:57)
[2018-06-24] MEDS: CELECOXIB 100 MG CAPSULE PO SCH (09:24)
[2018-06-24] MEDS: SENNOSIDES/DOCUSATE SODIUM 1 TAB TABLET PO SCH (09:25)
[2018-06-24] MEDS: EZETIMIBE 10 MG TABLET PO SCH (09:25)
[2018-06-24] MEDS: CHOLECALCIFEROL 1,000 UNIT TABLET (VIT D3) PO SCH (09:25)
[2018-06-24] MEDS: SORBITOL SOLUTION 30 ML PO SCH (09:25)
[2018-06-24] MEDS: ENOXAPARIN SODIUM 40 MG/0.4 ML DISP.SYRIN SQ SCH (09:26)
[2018-06-24] MEDS: LIDOCAINE 5% (PATCH) 1 EA PATCH TP SCH (10:41)
[2018-06-24 16:00] VITALS: BP 126/66
--- NOTE | 2018-06-24 18:03 | NUR ---
RN NOTE: INFORMED DR. TALAMANTES ABOUT THE PATIENT'S (L) UA MIDLINE. MD WAS OK TO REMOVE THE (L) UA MIDLINE PRIOR TO DISCHARGE. PATIENT MADE AWARE.
--- NOTE | 2018-06-24 18:14 | NUR ---
RN NOTE: PATIENT WAS ASKED ABOUT TAKING PICTURE OF THE SCATTERED ABDOMINAL SKIN DISCOLORATIONS BLACK-PURPLISH IN COLOR DUE TO THE LOVENOX INJECTION. PATIENT WAS OFFERED 3X AND SHE CONTINUED TO REFUSED IT. DR. TALAMANTES MADE AWARE.
--- NOTE | 2018-06-24 18:20 | NUR ---
RN NOTE: PATIENT'S (L) UA MIDLINE WAS REMOVED AND PATIENT TOLERATED IT WELL. INTACT CATHETER TIP WAS NOTED WITH NO BLEEDING ON THE SITE NOTED. APPLIED PRESSURE AND COVERED WITH DRY GAUZE AND SECURED WITH TAPE.
--- NOTE | 2018-06-24 19:20 | NUR ---
RN NOTE: DISCUSSED WITH PATIENT HER EXIT CARE AND MAKE SURE THAT SHE RECEIVED THE PRESCRIPTION FOR THE MEDICATIONS AND THE FOLLOW-UP APPOINTMENTS AT [facility]. PATIENT UNDERSTOOD EVERYTHING ON HER DISCHARGE NOTES. PATIENT ABLE TO WALK WITHOUT WALKER IN THE UNIT.
--- NOTE | 2018-06-24 20:00 | NUR ---
RN NOTE: PATIENT WAS ESCORTED TO THE HOSPITAL'S MAIN LOBBY AND RELEASED HER WITH ALL HER BELONGINGS. PATIENT PREFERRED TO TAKE TAXI UPON GETTING DISCHARGE.
== END 2018-06-24 20:00 | disposition home health service (06) | DRG 184 ==
LOC: ER 07:46 → TELE1 11:04 → MEDSG1 06-12 12:06
PROVIDERS: ADMIT Legal Medicine
PROC: 05H633Z Insertion of Infusion Device into Left Subclavian Vein, Percutaneous Approach (ICD-10-PCS; principal; 2018-06-17)
DX: S22.42XA Multiple fractures of ribs, left side, initial encounter for closed fracture (principal); M48.54XA Collapsed vertebra, not elsewhere classified, thoracic region, initial encounter for fracture; J98.11 Atelectasis; G90.8 Other disorders of autonomic nervous system; I10 Essential (primary) hypertension; E78.5 Hyperlipidemia, unspecified; I25.10 Atherosclerotic heart disease of native coronary artery without angina pectoris; W19.XXXA Unspecified fall, initial encounter; Y93.9 Activity, unspecified; J45.909 Unspecified asthma, uncomplicated; I35.0 Nonrheumatic aortic (valve) stenosis; K59.00 Constipation, unspecified; M85.80 Other specified disorders of bone density and structure, unspecified site; Y92.89 Other specified places as the place of occurrence of the external cause
CPT/HCPCS: 36415; 36569; 70450-TC; 71045-TC; 71100-TC; 71250-TC; 72146-TC; 72148-TC; 73110; 73562; 75574; 80048-TC; 80053-TC; 80061-TC; 80076-TC; 83735-TC; 84100-TC; 84439-TC; 84443-TC; 84484-TC; 85025-TC; 85730-TC; 87081-TC; 93307-TC; 93880-TC; G0378; J1650; J1885; J2405; J3010; J3490; J7030; J7050; Q9967

== ENCOUNTER 2018-08-05 12:30 | Outpatient (CLI) | payer BC, MEDICARE ==
[~2018-08-05 12:30] MED LIST changes: -LUBI24CA5 PO
== END 2018-08-05 23:59 | disposition home or self-care (01) ==
LOC: MSC 12:30
PROVIDERS: ATTEND Anesthesiology
DX: M51.36 Other intervertebral disc degeneration, lumbar region (principal); M51.26 Other intervertebral disc displacement, lumbar region; S22.32XD Fracture of one rib, left side, subsequent encounter for fracture with routine healing; M40.299 Other kyphosis, site unspecified; M47.816 Spondylosis without myelopathy or radiculopathy, lumbar region; M62.830 Muscle spasm of back; I10 Essential (primary) hypertension; E78.5 Hyperlipidemia, unspecified; Z86.79 Personal history of other diseases of the circulatory system; Z79.899 Other long term (current) drug therapy; W19.XXXD Unspecified fall, subsequent encounter

== ENCOUNTER 2018-08-20 10:01 | Outpatient (CLI) | payer BC, MEDICARE | END 2018-08-20 23:59 | disposition home or self-care (01) | LOC: MRI 10:01 | PROVIDERS: ATTEND Legal Medicine | DX: M48.02 Spinal stenosis, cervical region (principal); M50.321 Other cervical disc degeneration at C4-C5 level; M50.221 Other cervical disc displacement at C4-C5 level; M25.78 Osteophyte, vertebrae; M43.8X2 Other specified deforming dorsopathies, cervical region; M19.012 Primary osteoarthritis, left shoulder; M75.82 Other shoulder lesions, left shoulder; M25.812 Other specified joint disorders, left shoulder | CPT/HCPCS: 72141-TC; 73221-TC ==

== ENCOUNTER 2018-08-26 11:00 | Outpatient (CLI) | payer BC, MEDICARE | END 2018-08-26 23:59 | disposition home or self-care (01) | LOC: MSC 11:00 | PROVIDERS: ATTEND Anesthesiology | DX: M48.50XD Collapsed vertebra, not elsewhere classified, site unspecified, subsequent encounter for fracture with routine healing (principal); S22.32XD Fracture of one rib, left side, subsequent encounter for fracture with routine healing; M47.816 Spondylosis without myelopathy or radiculopathy, lumbar region; M51.36 Other intervertebral disc degeneration, lumbar region; M51.26 Other intervertebral disc displacement, lumbar region; M62.830 Muscle spasm of back; M40.299 Other kyphosis, site unspecified; Z86.79 Personal history of other diseases of the circulatory system; I10 Essential (primary) hypertension; J45.909 Unspecified asthma, uncomplicated ==

== ENCOUNTER 2019-03-17 09:41 | Inpatient (IN) | payer BC, MEDICARE ==
[~2019-03-17] VITALS: Ht 160 cm; Wt 73.0 kg
[~2019-03-17 09:41] MED LIST changes: -TRAZ-214 PO; +TRAZ-257 PO
--- NOTE | 2019-03-17 09:55 | NUR ---
bibhusband, c/o asthma, cough x 5 days, afebrile. Patient a/ox4, breathing even and unlabored, no sob noted. Kept comfortable.
--- NOTE | 2019-03-17 10:05 | NUR ---
DR. LILLY AT BEDSIDE.
[2019-03-17] MEDS ORDERED: IPRATROPIUM NEB FS 0.5 MG/2.5 ML AMPUL.NEB NEB ONE ×2 (10:30→11:30)
[2019-03-17] MEDS ORDERED: LEVALBUTEROL HCL NEB 1.25 MG/0.5 ML VIAL.NEB NEB PRN ×2 (10:30→11:30)
[2019-03-17] MEDS ORDERED: predniSONE 20 MG TABLET PO ONE (10:30)
[2019-03-17] MEDS ORDERED: ALBUTEROL FS 2.5 MG/3 ML VIAL.NEB NEB ONE (10:30)
[2019-03-17] MEDS ORDERED: IPRATROPIUM NEB FS 0.5 MG/2.5 ML AMPUL.NEB ONE (10:30)
[2019-03-17] MEDS ORDERED: predniSONE 20 MG TABLET ONE (10:38)
--- NOTE | 2019-03-17 10:40 | NUR ---
rt at bedside.
[2019-03-17] MEDS: LEVALBUTEROL HCL NEB 1.25 MG/0.5 ML VIAL.NEB NEB PRN ×3 (11:25→20:09)
--- NOTE | 2019-03-17 11:33 | NUR ---
ENDORSED TO MARIA BLANK
[2019-03-17] MEDS ORDERED: LEVALBUTEROL HCL NEB 1.25 MG/0.5 ML VIAL.NEB NEB SCH (12:00)
--- NOTE | 2019-03-17 12:06 | NUR ---
CALLED RT FOR MORE BREATHINGT X ORDERS
--- NOTE | 2019-03-17 12:13 | NUR ---
CALLED NURSING SUP FOR M/S BED.
[2019-03-17 12:23] LABS: BASOPHILS # (AUTO) 0.1 /CMM (0.0-0.2); BASOPHILS % (AUTO) 0.9 % (0.0-2.0); EOSINOPHILS % (AUTO) 0.7 % (0.0-6.0); HEMATOCRIT 43 % (33-45); HEMOGLOBIN 14.2 g/dL (11.5-14.8); LYMPHOCYTES # (AUTO) 1.6 /CMM (0.8-4.8); LYMPHOCYTES % (AUTO) 23.5 % (20.0-44.0); MEAN CORPUSCULAR HGB CONC 33 g/dl (31.0-36.0); MEAN CORPUSCULAR VOLUME 91 fL (82-100); MONOCYTES # (AUTO) 0.3 /CMM (0.1-1.30); NEUTROPHILS # (AUTO) 4.8 /CMM (1.8-8.9); NEUTROPHILS % (AUTO) 69.9 % (43.0-81.0); PLATELET COUNT (AUTO) 190 /CMM (150-450); RED BLOOD CELL COUNT(AUTO) 4.68 MIL/uL (4.0-5.2); WHITE BLOOD COUNT (AUTO) 6.8 K/uL (4.3-11.0)
[2019-03-17 12:30] LABS: CALCIUM, SERUM 9.2 mg/dL (8.5-10.1); CREATININE 0.7 mg/dL (0.6-1.3); POTASSIUM 3.5 mmol/L (3.5-5.1)
--- NOTE | 2019-03-17 12:34 | NUR ---
NURSING SUP GAVE M/S BED 105.
[2019-03-17 13:00] VITALS: BP 121/48
--- NOTE | 2019-03-17 13:08 | NUR ---
admit to tele - report given to the floor nurse accepted by Dr. Osborn
[2019-03-17 13:36] VITALS: BP 121/48
[2019-03-17] MEDS ORDERED: ONDANSETRON HCL/PF 4 MG/2 ML VIAL IVP PRN (14:30)
[2019-03-17] MEDS ORDERED: ACETAMINOPHEN 325 MG TABLET PO PRN (14:30)
--- NOTE | 2019-03-17 14:32 | NUR ---
ms rn note received patient from er with dx asthma exacerbation under care dr garcia , alert , Oriented x4 , placed on 2l l of o2 ,no sob at this time sat 93% at this time. Plan of care discussed with the patient. hospital orientation done, vital signs taken, belonging chart, IV heplock intact and flush well. All needs attended. Call light within reach. Called Dr Garcia, for pneumonia vaccine upon discharge, change breathing tx to Zopenex with Atrovent. Will continue to monitor
[2019-03-17] MEDS: LEVALBUTEROL HCL NEB 1.25 MG/0.5 ML VIAL.NEB NEB SCH ×2 (15:02→22:52)
[2019-03-17] MEDS: IPRATROPIUM NEB FS 0.5 MG/2.5 ML AMPUL.NEB NEB SCH ×2 (15:02→22:52)
[2019-03-17 16:00] VITALS: BP 109/53
[2019-03-17] MEDS: LEVOFLOXACIN 750 MG /D5W 150ML 750 MG in PREMIX 1 EA IV SCH (16:52)
--- NOTE | 2019-03-17 17:15 | NUR ---
MS RN notes Notified to Dr Osborn that pt is coughing and order Robitussin Dm q6h prn. Order carried out
--- NOTE | 2019-03-17 17:41 | NUR ---
MS BLANK notes Weight Recorder Dr Phelps, notified that pt is experiencing palpitations and have fire management specialist consult. Addendum: 03/17/19 at 1841 by ALEJANDRA CHILDS RN Dr Holman, is aware of the EKG result and placed the pt in tele unit
[2019-03-17 18:43] LABS: THYROID STIMULATING HORMONE 1.742 uIU/mL (0.358-3.74)
--- NOTE | 2019-03-17 18:49 | NUR ---
MEDIA PROMOTER NOTES Rounds made, not in acute distress. Call light within reach. Will continue to monitor .
--- NOTE | 2019-03-17 19:30 | NUR ---
RN OPEN NOTES RECEIVED PATIENT AWAKE IN BED. A/OX4. NO SIGNS OF DISTRESS OR DISCOMFORT. BREATHING EVEN AND UNLABORED. ON 2LPM O2 VIA NC. IV ACCESS IN LFA, PATENT AND INTACT, NO SIGNS OF REDNESS OR INFILTRATION. BED IN LOW LOCKED POSITION WITH SIDE RAILS X2. CALL LIGHT WITHIN REACH. WILL CONTINUE TO MONITOR. Addendum: 03/17/19 at 2050 by CLAIRE FARR RN ON TELE MONITORING WITH SR 76 NOTED.
[2019-03-17 20:00] VITALS: BP 112/91
[2019-03-17] MEDS: IPRATROPIUM NEB FS 0.5 MG/2.5 ML AMPUL.NEB NEB PRN (20:09)
[2019-03-17] MEDS: clonazePAM 1 MG TABLET PO SCH (22:27)
[2019-03-17] MEDS: methylPREDNISolone SOD SUCC 125 MG/2ML VIAL IV SCH (22:28)
[2019-03-17] MEDS: TRAZODONE 50 MG TABLET PO SCH (22:28)
[2019-03-17] MEDS: ENOXAPARIN SODIUM 40 MG/0.4 ML DISP.SYRIN SQ SCH (22:30)
[2019-03-18 04:00] VITALS: BP 119/74
[2019-03-18] MEDS: methylPREDNISolone SOD SUCC 125 MG/2ML VIAL IV SCH ×3 (05:07→21:58)
[2019-03-18 06:35] LABS: BASOPHILS % (AUTO) 0.1 % (0.0-2.0); HEMATOCRIT 39 % (33-45); HEMOGLOBIN 13.6 g/dL (11.5-14.8); LYMPHOCYTES # (AUTO) 0.5 /CMM (0.8-4.8); LYMPHOCYTES % (AUTO) 12.2 % (20.0-44.0); MEAN CORPUSCULAR HGB CONC 35 g/dl (31.0-36.0); MEAN CORPUSCULAR VOLUME 90 fL (82-100); MONOCYTES # (AUTO) 0.1 /CMM (0.1-1.30); MONOCYTES % (AUTO) 2.6 % (2.0-12.0); NEUTROPHILS # (AUTO) 3.6 /CMM (1.8-8.9); NEUTROPHILS % (AUTO) 85.1 % (43.0-81.0); PLATELET COUNT (AUTO) 209 /CMM (150-450); RED BLOOD CELL COUNT(AUTO) 4.38 MIL/uL (4.0-5.2); WHITE BLOOD COUNT (AUTO) 4.2 K/uL (4.3-11.0)
--- NOTE | 2019-03-18 06:52 | NUR ---
RN CLOSING NOTES PATIENT RESTING IN BED, EASILY AROUSABLE. A/OX4. NO SIGNS OF DISTRESS OR DISCOMFORT. BREATHING EVEN AND UNLABORED. ON 2LPM O2 VIA NC. ON TELE MONITORING WITH SR 78 NOTED. IV ACCESS IN LFA, PATENT AND INTACT, NO SIGNS OF REDNESS OR INFILTRATION. ALL NEEDS MET. NO SIGNIFICANT CHANGES THROUGH THE NIGHT. BED IN LOW LOCKED POSITION WITH SIDE RAILS X2. CALL LIGHT WITHIN REACH. WILL ENDORSE TO AM SHIFT FOR KALA.
--- NOTE | 2019-03-18 07:00 | NUR ---
CREATIVE DEVELOPER NOTES PATIENT A/O X4 PATIENT IS ON TELE MONITOR S. PATIENT AMBULATORY, SKIN INTACT. PATIENT HAS 2 L OXYGEN , SATURATING 96 % . PATIENT SHOWS NO SIGNS IS ACUTE RESPIRATORY DISTRESS. NO SOB, NO PAIN. BED LOCKED AND LOWEST POSITION. ALL SAFETY MEASURE IMPLEMENTED .BED LOCKED AND LOWEST POSITION. CALL LIGHT WITH IN REACH. 2X RAILS UP
[2019-03-18 07:06] LABS: CALCIUM, SERUM 8.9 mg/dL (8.5-10.1); CREATININE 0.6 mg/dL (0.6-1.3); MAGNESIUM 2.1 mg/dL (1.8-2.4); POTASSIUM 3.6 mmol/L (3.5-5.1)
[2019-03-18] MEDS ORDERED: PANTOPRAZOLE 40 MG TABLET.DR PO SCH (07:30)
[2019-03-18] MEDS: LEVALBUTEROL HCL NEB 1.25 MG/0.5 ML VIAL.NEB NEB SCH ×3 (07:46→23:08)
[2019-03-18] MEDS: IPRATROPIUM NEB FS 0.5 MG/2.5 ML AMPUL.NEB NEB SCH ×3 (07:46→23:09)
[2019-03-18 08:00] VITALS: BP 144/65
[2019-03-18] MEDS: SIMVASTATIN 20 MG TABLET PO SCH (08:43)
[2019-03-18] MEDS: EZETIMIBE 10 MG TABLET PO SCH (08:43)
[2019-03-18] MEDS: PANTOPRAZOLE 40 MG VIAL IV SCH (08:43)
[2019-03-18] MEDS: DOCUSATE SODIUM 250 MG CAPSULE PO SCH (08:43)
[2019-03-18 12:04] VITALS: BP 119/68
[2019-03-18] MEDS: MAGNESIUM HYDROXIDE 30 ML UDC PO PRN (12:29)
[2019-03-18] MEDS: LEVALBUTEROL HCL NEB 1.25 MG/0.5 ML VIAL.NEB NEB PRN ×2 (13:28→20:14)
[2019-03-18] MEDS: IPRATROPIUM NEB FS 0.5 MG/2.5 ML AMPUL.NEB NEB PRN ×2 (13:28→20:14)
[2019-03-18 16:00] VITALS: BP 118/52
[2019-03-18] MEDS: LEVOFLOXACIN 750 MG /D5W 150ML 750 MG in PREMIX 1 EA IV SCH (17:54)
--- NOTE | 2019-03-18 18:59 | NUR ---
PATIENT A/O X4 PATIENT IS ON TELE MONITOR S. PATIENT AMBULATORY, SKIN INTACT. PATIENT HAS 2 L OXYGEN , SATURATING 98 % . PATIENT SHOWS NO SIGNS IS ACUTE RESPIRATORY DISTRESS. NO SOB, NO PAIN. BED LOCKED AND LOWEST POSITION. ALL SAFETY MEASURE IMPLEMENTED .BED LOCKED AND LOWEST POSITION. CALL LIGHT WITH IN REACH. 2X RAILS UP
--- NOTE | 2019-03-18 19:20 | NUR ---
RN OPENING NOTES 1919 RECEIVED PATIENT IN BED, A/O X 4. NO SIGNS OF RESPIRATORY DISTRESS, BREATHING EVEN AND UNLABORED. NO SHORTNESS OF BREATH NOTED. ON 2LPM O2 VIA NC, TOLERATING WELL, NO COMPLAINTS. IV SITE LFA, PATENT AND INTACT, NO SIGNS OF INFECTION/INFILTRATION, S/L. NO COMPLAINTS OF PAIN OR DISCOMFORT AT THIS TIME. SAFETY PRECAUTIONS IMPLEMENTED; CALL LIGHT WITHIN REACH, BED LOWEST POSITION, BED LOCKED, BILATERAL UPPER SIDE RAILS UP. WILL CONTINUE TO MONITOR.
[2019-03-18 20:00] VITALS: BP 134/58
[2019-03-18] MEDS: IBUPROFEN 600 MG TABLET PO PRN (20:20)
[2019-03-18] MEDS: ENOXAPARIN SODIUM 40 MG/0.4 ML DISP.SYRIN SQ SCH (21:54)
[2019-03-18] MEDS: clonazePAM 1 MG TABLET PO SCH (22:03)
[2019-03-18] MEDS: TRAZODONE 50 MG TABLET PO SCH (22:04)
[2019-03-19] VITALS: BP 147/79
[2019-03-19 04:00] VITALS: BP 123/68
[2019-03-19] MEDS: IPRATROPIUM NEB FS 0.5 MG/2.5 ML AMPUL.NEB NEB PRN (04:37)
[2019-03-19] MEDS: LEVALBUTEROL HCL NEB 1.25 MG/0.5 ML VIAL.NEB NEB PRN (04:37)
[2019-03-19] MEDS: methylPREDNISolone SOD SUCC 125 MG/2ML VIAL IV SCH ×3 (04:58→21:10)
[2019-03-19] MEDS: IBUPROFEN 600 MG TABLET PO PRN (05:02)
--- NOTE | 2019-03-19 06:19 | NUR ---
RN NOTES 0631 PATIENT COMPLAINING OF CHEST PAIN, JAW PAIN. STATES SHE'S BEEN SITTING ON IT FOR 20-30 MINUTES. BP 128/66, PULSE 77. CHARGE NURSE, ABNER TEJEDA. ABNER PAGED
--- NOTE | 2019-03-19 06:20 | NUR ---
0620 SUMMONED TO PATIENT'S ROOM DUE TO C/O CHEST PAIN 810 RATE. PER PATIENT PAIN STARTED ON HER JAW THEN RADIATED TO HER CHEST 40 MINS AGO, PER PATIENT SHE WAITED TO SEE IF PAIN WOULD GO AWAY BUT IT DID NOT. CHECKED VITAL SIGNS B/P 128/66, HR 80S NSR, O2 SATURATION 97% ON 2LPM NC. NO SIGNS OF DISTRESS NOTED.
[2019-03-19 06:24] VITALS: BP 128/66
--- NOTE | 2019-03-19 06:25 | NUR ---
[address] ZAVALA AND LEFT MESSAGE ON HIS VOICEMAIL. AWAITING CALL BACK.
--- NOTE | 2019-03-19 06:38 | NUR ---
2087 DR ZAVALA CALLED BACK WITH ORDERS FOR STAT EKG, STAT TROPONIN AND NITROGLYCERIN SL. ORDERS NOTED AND CARRIED OUT. PATIENT NOTIFIED OF NEW ORDERS. LETY LAWSON NOTIFIED.
[2019-03-19] MEDS: NITROGLYCERIN 0.4 MG/TAB BOTTLE SL PRN ×4 (06:51→17:08)
--- NOTE | 2019-03-19 07:04 | NUR ---
RN CLOSING NOTES PATIENT IS CURRENTLY RESTING IN BED, AWAKE. A/O X 4. NO SIGNS OF RESPIRATORY DISTRESS, BREATHING EVEN AND UNLABORED. NO SOB NOTED. ON 2LPM O2 VIA NC, TOLERATING WELL THROUGHOUT THE SHIFT WITH NO COMPLAINTS. FOR MOST OF THE NIGHT PATIENT DOES NOT WANT TO BE BOTHERED, ONLY REQUEST TO BE AWAKENED FOR MEDS/BREATHING TREATMENTS/VITAL SIGNS ON HER REQUEST. ON TELE MONITOR WITH SR. IV SITE LFA, REMAINS INTACT AND PATENT, NO INFECTION/INFILTRATION NOTED, FLUSHED, S/L. ALL NEEDS MET THROUGHOUT THE SHIFT. NO COMPLAINTS OF PAIN OR DISCOMFORT AT THIS TIME, CHESTPAIN/JAW PAIN RELIEVED NOW. PATIENT REMAINS STABLE. ALL DUE MEDICATION GIVEN ORDERED, NO ADVERSE EFFECTS NOTED. SAFETY PRECAUTIONS IMPLEMENTED; CALL LIGHT WITHIN REACH, BED LOWEST POSITION, BED LOCKED, BILATERAL UPPER SIDE RAILS UP. WILL CONTINUE TO MONITOR FOR NOW. THEN WILL ENDORSE TO DAY SHIFT NURSE FOR CONTINUITY OF CARE.
--- NOTE | 2019-03-19 07:04 | NUR ---
RN NOTES PATIENT STATES PAIN IS 2/10 CHEST PAIN. 0/10 JAW PAIN. LAST BP 105/58 PULSE 82. PATIENT STATES SHE IS RELIEVED FROM PAIN. SHE TOOK 3 DOSES OF NITRO.
--- NOTE | 2019-03-19 07:15 | NUR ---
PER DIEM INTERPRETER OPENING NOTE: RECEIVED PATIENT IN AWAKE, ALERT AND ORIENTED X4 IN BED. ON CONT. O2 VIA NC AND TOLERATING WELL. IV SITE ON LEFT FA G20 PATENT, IN PLACE. SITE CLEAN AND SECURE. PATIENT REPORTED NO PAIN FROM PREVIOUS CHEST PAIN REPORTED FROM PREVIOUS SHIFT. ON CARDIAC MONITORING WITH SINUS RHYTHM NOTED. CALL LIGHT IN REACH, SIDE RAILS UP, BED LOCKED, LOW AND AT SEMI-COLLIER'S POSITION. WILL CONTINUE TO MONITOR.
[2019-03-19 08:00] VITALS: BP 105/59
[2019-03-19] MEDS: IPRATROPIUM NEB FS 0.5 MG/2.5 ML AMPUL.NEB NEB SCH ×3 (08:12→22:35)
[2019-03-19] MEDS: LEVALBUTEROL HCL NEB 1.25 MG/0.5 ML VIAL.NEB NEB SCH ×3 (08:12→22:35)
[2019-03-19] MEDS: DOCUSATE SODIUM 250 MG CAPSULE PO SCH (08:25)
[2019-03-19] MEDS: SIMVASTATIN 20 MG TABLET PO SCH (08:25)
[2019-03-19] MEDS: PANTOPRAZOLE 40 MG VIAL IV SCH (08:25)
[2019-03-19] MEDS: EZETIMIBE 10 MG TABLET PO SCH (08:25)
[2019-03-19 12:00] VITALS: BP 128/58
[2019-03-19] MEDS ORDERED: MAGNESIUM CITRATE 296 ML BOTTLE PO ONE ×2 (15:00→18:30)
[2019-03-19] MEDS ORDERED: IV NS 0.9% 250 ML IV ONE ×2 (15:54→17:28)
[2019-03-19] MEDS ORDERED: IOHEXOL-350 100 ML VIAL IV ONE ×2 (15:54→17:28)
--- NOTE | 2019-03-19 16:00 | NUR ---
HOUSE PAINTER HELPER NOTE: PATIENT WAS TAKEN TO RADIOLOGY FOR PROCEDURES. NOT IN DISTRESS AND IN STABLE CONDITION
[2019-03-19] MEDS: METOPROLOL TARTRATE INJ 5 MG/5 ML AMPUL IVP PRN ×10 (16:15→16:55)
[2019-03-19] MEDS ORDERED: METOPROLOL TARTRATE INJ 5 MG/5 ML AMPUL ONE ×2 (16:26→17:10)
[2019-03-19] MEDS ORDERED: NITROGLYCERIN 0.4 MG/TAB BOTTLE SL PRN (16:30)
[2019-03-19] MEDS ORDERED: CT SWABBABLE VALVE TRANS SET 1 EA INFUS.SET MC ONE (17:28)
--- NOTE | 2019-03-19 18:00 | NUR ---
FORM WORKER NOTE: PATIENT CAME BACK FROM PROCEDURES. TOLERATED PROCEDURES WELL. NO PAIN REPORTED. IN STABLE CONDITION. WILL CONTINUE TO MONITOR.
[2019-03-19] MEDS: LEVOFLOXACIN (750 MG) 750 MG TABLET PO SCH (18:04)
--- NOTE | 2019-03-19 18:20 | NUR ---
PIER MASTER ASSISTANT NOTE: PATIENT LAC G18 IV SITE DISCONTINUED PER REQUEST. NO ADVERSE REACTIONS NOTED.
--- NOTE | 2019-03-19 19:10 | NUR ---
TUBE BUILDER CLOSING NOTE: PATIENT IN AWAKE, ALERT AND ORIENTED X4 IN BED. ON CONT. O2 VIA NC AND TOLERATING WELL. IV SITE ON LEFT FA G20 PATENT, IN PLACE. SITE CLEAN AND SECURE. ON CARDIAC MONITORING WITH SINUS RHYTHM NOTED. AWAITING RESULTS FROM PROCEDURES DONE, PATIENT IS AWARE. NO PAIN REPORTED ON SHIFT. AMBULATION WAS DONE WITH PATIENT, WITH ACTIVITY TOLERATED WELL. CALL LIGHT IN REACH, SIDE RAILS UP, BED LOCKED, LOW AND AT SEMI-COLLIER'S POSITION. ENDORSED TO ONCOMING SHIFT FOR KALA.
--- NOTE | 2019-03-19 19:30 | NUR ---
STRUCTURAL METAL FABRICATOR APPRENTICE OPENING NOTES Patient A/O x4, awake on bed. On RA, no SOB/respiratory distress noted. Patient denies any discomfort at this time. Discussed the POC with the patient. Kept on bed clean, dry and comfortable. On fall and aspiration precautions. Call light within easy reach. Will continue to monitor accordingly.
[2019-03-19 20:00] VITALS: BP 122/80
[2019-03-19] MEDS: clonazePAM 1 MG TABLET PO SCH (21:09)
[2019-03-19] MEDS: TRAZODONE 50 MG TABLET PO SCH (21:10)
[2019-03-19] MEDS: ENOXAPARIN SODIUM 40 MG/0.4 ML DISP.SYRIN SQ SCH (21:11)
[2019-03-20] VITALS: BP 148/78
[2019-03-20] MEDS: GUAIFENESIN/D-METHORPHAN HB 5 ML UDC PO PRN ×2 (01:12→22:38)
[2019-03-20] MEDS: IBUPROFEN 600 MG TABLET PO PRN (01:12)
[2019-03-20] MEDS: LEVALBUTEROL HCL NEB 1.25 MG/0.5 ML VIAL.NEB NEB PRN ×2 (03:42→20:10)
[2019-03-20] MEDS: IPRATROPIUM NEB FS 0.5 MG/2.5 ML AMPUL.NEB NEB PRN ×2 (03:42→20:10)
[2019-03-20 04:00] VITALS: BP 146/75
[2019-03-20] MEDS: methylPREDNISolone SOD SUCC 125 MG/2ML VIAL IV SCH ×3 (04:20→21:01)
--- NOTE | 2019-03-20 06:12 | NUR ---
KINESIOLOGIST CLOSING NOTES Patient intermittently asleep, easily awaken. With use of O2 intermittency, still with KANG noted. Tolerated to wake to bathroom and back to bed with slight fatigue and wheezing. All nursing needs attended, due meds given as ordered. Kept on bed clean, dry and comfortable. On fall and aspiration precautions. Call light within easy reach. Endorsed to the next shift.
[2019-03-20 07:03] LABS: BASOPHILS % (AUTO) 0.1 % (0.0-2.0); HEMATOCRIT 41 % (33-45); HEMOGLOBIN 13.6 g/dL (11.5-14.8); LYMPHOCYTES # (AUTO) 0.6 /CMM (0.8-4.8); LYMPHOCYTES % (AUTO) 4.8 % (20.0-44.0); MEAN CORPUSCULAR HGB CONC 33 g/dl (31.0-36.0); MEAN CORPUSCULAR VOLUME 90 fL (82-100); MONOCYTES # (AUTO) 0.4 /CMM (0.1-1.30); MONOCYTES % (AUTO) 3.2 % (2.0-12.0); NEUTROPHILS # (AUTO) 11.5 /CMM (1.8-8.9); NEUTROPHILS % (AUTO) 91.9 % (43.0-81.0); PLATELET COUNT (AUTO) 237 /CMM (150-450); RED BLOOD CELL COUNT(AUTO) 4.53 MIL/uL (4.0-5.2); WHITE BLOOD COUNT (AUTO) 12.6 K/uL (4.3-11.0)
--- NOTE | 2019-03-20 07:30 | NUR ---
TELE/RN OPENING NOTES RECEIVED PATIENT IN BED SLEEPING COMFORTABLY. EASILY AROUSABLE. PATIENT IS ALERT AND ORIENTED X4. NO PAIN OR ACUTE DISTRESS AT THIS TIME. RESPIRATION EVEN AND UNLABORED. SKIN IS DRY WARM TO TOUCH. PATIENT CONTINUES ON CONT. O2 VIA NC AND TOLERATING WELL. IV SITE ON LEFT FA G20 INTACT AND PATENT. FLUSHING WELL. CONTINUES ON CARDIAC MONITORING WITH SINUS RHYTHM NOTED. ALL NEEDS ANTICIPATED. CALL LIGHT WITHIN REACHED. BED LOCKED AND IN LOWEST POSITION. SAFETY MAINTAINED. PLAN OF CARE DISCUSSED. WILL CONTINUE TO MONITOR CLOSELY.
[2019-03-20] MEDS: LEVALBUTEROL HCL NEB 1.25 MG/0.5 ML VIAL.NEB NEB SCH ×2 (07:35→23:27)
[2019-03-20] MEDS: IPRATROPIUM NEB FS 0.5 MG/2.5 ML AMPUL.NEB NEB SCH ×2 (07:35→23:27)
[2019-03-20 07:38] LABS: CALCIUM, SERUM 8.5 mg/dL (8.5-10.1); CREATININE 0.7 mg/dL (0.6-1.3); MAGNESIUM 2.6 mg/dL (1.8-2.4); POTASSIUM 3.9 mmol/L (3.5-5.1)
[2019-03-20 08:00] VITALS: BP 150/86
[2019-03-20] MEDS: EZETIMIBE 10 MG TABLET PO SCH (08:54)
[2019-03-20] MEDS: DOCUSATE SODIUM 250 MG CAPSULE PO SCH (08:54)
[2019-03-20] MEDS: PANTOPRAZOLE 40 MG VIAL IV SCH (08:54)
[2019-03-20 09:05] LABS: CHOLESTEROL 184 mg/dL (<200); HDL CHOLESTEROL 66 mg/dL (40-60); LDL 90 mg/dL (0-99); TRIGLYCERIDES 145 mg/dL (30-150)
[2019-03-20 12:00] VITALS: BP 141/70
[2019-03-20 16:00] VITALS: BP 154/84
[2019-03-20] MEDS: LEVOFLOXACIN (750 MG) 750 MG TABLET PO SCH (16:08)
[2019-03-20] MEDS: SIMVASTATIN 20 MG TABLET PO SCH (17:21)
--- NOTE | 2019-03-20 18:50 | NUR ---
TELE/RN CLOSING NOTES PATIENT CONTINUES TO REMAIN IN STABLE CONDITION THROUGHOUT THE SHIFT. PROVIDED COMFORT AND SAFETY. PATIENT CONTINUES ON CONT. O2 VIA NC AND TOLERATING WELL. IV SITE ON LEFT FA G20 INTACT AND PATENT. FLUSHING WELL. CONTINUES ON CARDIAC MONITORING WITH SINUS RHYTHM NOTED. ALL NEEDS ANTICIPATED. CALL LIGHT WITHIN REACHED. BED LOCKED AND IN LOWEST POSITION. SAFETY MAINTAINED. WILL CONTINUE TO MONITOR CLOSELY. ENDORSED TO PM NURSE FOR KALA.
--- NOTE | 2019-03-20 19:50 | NUR ---
Recieved alert and orientated. good eye contact speech clear Instructed me to not check on her she will call me, because when the door opens she wakes up every time. O2 on 2 liters no SOB resp even and unlabored SR on the tele monitor
[2019-03-20 20:00] VITALS: BP 140/80
[2019-03-20] MEDS: ENOXAPARIN SODIUM 40 MG/0.4 ML DISP.SYRIN SQ SCH (21:02)
[2019-03-20] MEDS: TRAZODONE 50 MG TABLET PO SCH (22:04)
[2019-03-20] MEDS: clonazePAM 1 MG TABLET PO SCH (22:04)
[2019-03-21] VITALS: BP 149/69
[2019-03-21] MEDS: methylPREDNISolone SOD SUCC 125 MG/2ML VIAL IV SCH (04:52)
--- NOTE | 2019-03-21 05:06 | NUR ---
Closing Notes: went to bed around 1 AM, after watching TV. Slept soundly, no audible wheezing o seen SOB. This AM 02 sats 92% with 02 at 2liter and after walking back from the bathroom. smiling and in good spirits.
[2019-03-21] MEDS: IPRATROPIUM NEB FS 0.5 MG/2.5 ML AMPUL.NEB NEB PRN (05:22)
[2019-03-21] MEDS: LEVALBUTEROL HCL NEB 1.25 MG/0.5 ML VIAL.NEB NEB PRN (05:22)
[2019-03-21] MEDS: IPRATROPIUM NEB FS 0.5 MG/2.5 ML AMPUL.NEB NEB SCH ×2 (07:46→15:02)
[2019-03-21] MEDS: LEVALBUTEROL HCL NEB 1.25 MG/0.5 ML VIAL.NEB NEB SCH ×2 (07:47→15:02)
--- NOTE | 2019-03-21 07:52 | NUR ---
RN OPENING NOTES RECEIVED PATIENT RESTING IN BED COMFORTABLY. SHE IS AOX4, VERBAL, AND AMBULATORY. SHE IS ON 2L OF OXYGEN VIA NC, TOLERATING WELL, NO S/SX OF RESP DISTRESS OR SOB. WHEEZING HEARD UPON EXHALATION ON LUNG LOWRY. TELE MONITOR SHOWING SR. SHE IS ON REGULAR DIET, TOLERATING WELL. SHE IS ON REGULAR DIET. IV SITE ON LFA 20 G IS PATENT AND INTACT. SAFETY MEASURES HAVE BEEN IMPLEMENTED, CALL LIGHT IS WITHIN REACH, BED IS IN LOWEST AND LOCKED POSITION, SIDE RAILS UP X2, WILL CONTINUE TO MONITOR FOR ANY CHANGES.
[2019-03-21 08:00] VITALS: BP 141/75
[2019-03-21] MEDS: DOCUSATE SODIUM 250 MG CAPSULE PO SCH (09:08)
[2019-03-21] MEDS: EZETIMIBE 10 MG TABLET PO SCH (09:08)
[2019-03-21] MEDS: PANTOPRAZOLE 40 MG VIAL IV SCH (09:08)
[2019-03-21] MEDS: GUAIFENESIN/D-METHORPHAN HB 5 ML UDC PO PRN (09:08)
[2019-03-21 12:00] VITALS: BP_SYST 128; BP_SYST 155; BP_DIAS 72
[2019-03-21] MEDS: methylPREDNISolone SOD SUCC 40 MG/ML VIAL IV SCH ×2 (13:25→21:25)
[2019-03-21] MEDS: LEVOFLOXACIN (750 MG) 750 MG TABLET PO SCH (15:16)
[2019-03-21 16:00] VITALS: BP 147/72
[2019-03-21] MEDS: SIMVASTATIN 20 MG TABLET PO SCH (17:24)
--- NOTE | 2019-03-21 18:43 | NUR ---
RN CLOSING NOTES PATIENT IS RESTING COMFORTABLY IN THE BEDSIDE CHAIR, DENIES ANY PAIN OR DISCOMFORT AT THIS TIME. PT NEEDS HAVE BEEN MET, VITAL SIGNS ARE STABLE, NO ACUTE CHANGES OCCURRED THROUGHOUT THE SHIFT. SAFETY MEASURES HAVE BEEN IMPLEMENTED, CALL LIGHT IS WITHIN REACH, BED IS IN LOWEST AND LOCKED POSITION, SIDE RAILS UP X2, WILL ENDORSE TO NIGHTSHIFT RN FOR CONTINUITY OF CARE.
[2019-03-21 20:00] VITALS: BP 142/84
--- NOTE | 2019-03-21 20:00 | NUR ---
RN OPENING NOTES RECEIVED PATIENT IN BED COMFORTABLY. A/OX4, VERBAL, AND AMBULATORY. ON 2L OF OXYGEN VIA NC, TOLERATING WELL, NO S/SX OF RESP DISTRESS OR SOB. WHEEZING HEARD UPON EXHALATION ON LUNG LOWRY. TELE MONITOR SHOWING SR. SATING 94% ON REGULAR DIET, TOLERATING WELL. IV SITE ON LFA 20 G IS PATENT AND INTACT. SAFETY MEASURES HAVE BEEN IMPLEMENTED, CALL LIGHT IS WITHIN REACH, BED IS IN LOWEST AND LOCKED POSITION, SIDE RAILS UP X2, WILL CONTINUE TO MONITOR FOR ANY CHANGES. DUE MEDS GIVEN ORDERED V/S STABLE AFEBRILE , WILL CONTINUE TO MONITOR.
[2019-03-21] MEDS: ENOXAPARIN SODIUM 40 MG/0.4 ML DISP.SYRIN SQ SCH (21:26)
[2019-03-21] MEDS: TRAZODONE 50 MG TABLET PO SCH (21:27)
[2019-03-21] MEDS: IBUPROFEN 600 MG TABLET PO PRN (21:28)
[2019-03-21] MEDS: clonazePAM 1 MG TABLET PO SCH (21:28)
[2019-03-22] VITALS: BP 148/73
[2019-03-22] MEDS: IPRATROPIUM NEB FS 0.5 MG/2.5 ML AMPUL.NEB NEB SCH ×4 (01:45→22:58)
[2019-03-22] MEDS: LEVALBUTEROL HCL NEB 1.25 MG/0.5 ML VIAL.NEB NEB SCH ×4 (01:45→22:57)
[2019-03-22 04:00] VITALS: BP 132/71
[2019-03-22] MEDS: methylPREDNISolone SOD SUCC 40 MG/ML VIAL IV SCH ×3 (05:34→17:23)
--- NOTE | 2019-03-22 06:39 | NUR ---
telemarketer notes pt remains in bed awake a/o x4 no sob no distress noted .will endorse to rn day shift for continuity of care.
--- NOTE | 2019-03-22 07:30 | NUR ---
RN NOTE: Received patient in bed, awake, alert and verbally responsive. Respiration even and unlabored saturating 96% with O2 2L/min via NC. Denied any pain at this time. HOB elevated. Breakfast tray was served. Afebrile. Skin warm to touch. (L) forearm IV site noted patent and intact. Call light within reach. Bed locked and on lowest position at all times. Encouraged patient to use the call light for assistance and patient verbalized understanding.
[2019-03-22 08:00] VITALS: BP 165/79
[2019-03-22] MEDS: EZETIMIBE 10 MG TABLET PO SCH (08:10)
[2019-03-22] MEDS: DOCUSATE SODIUM 250 MG CAPSULE PO SCH (08:10)
[2019-03-22] MEDS: PANTOPRAZOLE 40 MG VIAL IV SCH (08:10)
--- NOTE | 2019-03-22 10:20 | NUR ---
RN NOTE: Patient was seen and examined by Dr. Hamlin and patient did not clear the patient to go home because of her wheezing. Breathing treatments were given to her. Will continue to monitor.
[2019-03-22 12:00] VITALS: BP 151/71
--- NOTE | 2019-03-22 12:30 | NUR ---
RN NOTE: Patient's Mian was at the bedside and he was aware that the patient will be staying for another night at the hospital. Patient ambulated within the unit was tolerating well with room air. Will continue to monitor.
[2019-03-22] MEDS: GUAIFENESIN/D-METHORPHAN HB 5 ML UDC PO PRN ×2 (15:59→20:49)
[2019-03-22] MEDS: LEVOFLOXACIN (750 MG) 750 MG TABLET PO SCH (15:59)
[2019-03-22] MEDS: IBUPROFEN 600 MG TABLET PO PRN ×2 (15:59→20:49)
[2019-03-22 16:00] VITALS: BP 139/84
--- NOTE | 2019-03-22 16:00 | NUR ---
RN NOTE: Dr. Delacruz came and examined the patient and he gave a tapered dose of the Solu-medrol. Order noted and carried out. Patient was aware.
--- NOTE | 2019-03-22 16:10 | NUR ---
RN NOTE: Patient started verbalizing that she was having some shortness of breath and patient was given O2 2L/min. RT Nick came and gave the patient a PRN breathing treatment. Patient verbalized a relief, but will continue to provide oxygen support to the patient via NC. Patient agreed.
[2019-03-22] MEDS: IPRATROPIUM NEB FS 0.5 MG/2.5 ML AMPUL.NEB NEB PRN (16:12)
[2019-03-22] MEDS: LEVALBUTEROL HCL NEB 1.25 MG/0.5 ML VIAL.NEB NEB PRN (16:12)
[2019-03-22] MEDS: SIMVASTATIN 20 MG TABLET PO SCH (17:23)
--- NOTE | 2019-03-22 19:10 | NUR ---
RN NOTE: Bedside report was given to PM shift nurse for continuity of care. Patient ate 75% of her dinner meal. She went to the bathroom 5x this shift and urinated, but no bowel movement was noted.
--- NOTE | 2019-03-22 19:30 | NUR ---
MEAL COOKER OPENING NOTES RECEIVED PATIENT RESTING IN BED. SHE IS AOX4, VERBAL, AND AMBULATORY. SHE IS ON 2L OF OXYGEN VIA NC, TOLERATING WELL, NO S/SX OF RESP DISTRESS OR SOB. WHEEZING HEARD UPON EXHALATION ON LUNG LOWRY. TELE MONITOR SHOWING SR. SHE IS ON REGULAR DIET, TOLERATING WELL. IV SITE ON LFA 20 G IS PATENT AND INTACT. SAFETY MEASURES HAVE BEEN IMPLEMENTED, CALL LIGHT IS WITHIN REACH, BED IS IN LOWEST AND LOCKED POSITION, SIDE RAILS UP X2, WILL CONTINUE TO MONITOR.
[2019-03-22 20:00] VITALS: BP 151/82
[2019-03-22] MEDS: MAGNESIUM HYDROXIDE 30 ML UDC PO PRN (20:47)
[2019-03-22] MEDS: ENOXAPARIN SODIUM 40 MG/0.4 ML DISP.SYRIN SQ SCH (20:48)
[2019-03-22] MEDS: clonazePAM 1 MG TABLET PO SCH (22:45)
[2019-03-22] MEDS: TRAZODONE 50 MG TABLET PO SCH (22:50)
[2019-03-23] MEDS: methylPREDNISolone SOD SUCC 40 MG/ML VIAL IV SCH ×2 (00:48→08:03)
[2019-03-23 04:00] VITALS: BP 156/79
[2019-03-23] MEDS: LEVALBUTEROL HCL NEB 1.25 MG/0.5 ML VIAL.NEB NEB PRN (04:55)
[2019-03-23] MEDS: IPRATROPIUM NEB FS 0.5 MG/2.5 ML AMPUL.NEB NEB PRN (04:55)
[2019-03-23] MEDS: IBUPROFEN 600 MG TABLET PO PRN ×2 (05:23→10:20)
[2019-03-23] MEDS: GUAIFENESIN/D-METHORPHAN HB 5 ML UDC PO PRN (05:24)
--- NOTE | 2019-03-23 06:44 | NUR ---
PATIENT CARE SECRETARY CLOSING NOTES PATIENT RESTING IN BED. SHE IS AOX4, VERBAL, AND AMBULATORY, O2 WNL, NO S/S OF RESP DISTRESS OR SOB. WHEEZING HEARD UPON EXHALATION ON LUNG LOWRY. TELE MONITOR SHOWING SR. SHE IS ON REGULAR DIET, TOLERATING WELL. IV SITE ON LFA 20 G IS PATENT AND INTACT. SAFETY MEASURES HAVE BEEN IMPLEMENTED, CALL LIGHT IS WITHIN REACH, BED IS IN LOWEST AND LOCKED POSITION, SIDE RAILS UP X2, WILL ENDORSE THE PATIENT TO AM RN FOR KALA.
--- NOTE | 2019-03-23 07:30 | NUR ---
RN Note: Pt received, A&Ox4, pleasant, compliant with care. Mild expiratory wheezing noted throughout. POC dw pt. Possible DC today pending pulmonology clearance.
[2019-03-23 08:00] VITALS: BP_SYST 126; BP_SYST 146; BP_DIAS 73; BP_DIAS 84
[2019-03-23] MEDS: EZETIMIBE 10 MG TABLET PO SCH (08:03)
[2019-03-23] MEDS: PANTOPRAZOLE 40 MG VIAL IV SCH (08:03)
[2019-03-23] MEDS: DOCUSATE SODIUM 250 MG CAPSULE PO SCH (08:03)
[2019-03-23] MEDS: IPRATROPIUM NEB FS 0.5 MG/2.5 ML AMPUL.NEB NEB SCH (08:12)
[2019-03-23] MEDS: LEVALBUTEROL HCL NEB 1.25 MG/0.5 ML VIAL.NEB NEB SCH (08:12)
--- NOTE | 2019-03-23 09:30 | NUR ---
RN Note: Pt ambulating in hallway with . No distress noted.
[2019-03-23] MEDS: MAGNESIUM HYDROXIDE 30 ML UDC PO PRN (10:20)
[2019-03-23] MEDS ORDERED: MAGNESIUM CITRATE 296 ML BOTTLE PO ONE (11:00)
[2019-03-23 12:00] VITALS: BP 135/78
[2019-03-23] MEDS ORDERED: PRED5TAB48 PO (12:19)
[2019-03-23] MEDS ORDERED: FLUT1DIS3 INH (12:19)
[2019-03-23] MEDS ORDERED: SIMV-46 PO (12:19)
[2019-03-23] MEDS ORDERED: LEVO750T21 PO (12:19)
--- NOTE | 2019-03-23 14:15 | NUR ---
ICU/RN: Pt discharged home in stable condition, no SOB noted with ambulation. Exit care and discharge instructions provided, pt demonstrates understanding of material. Pt to f/u with Dr Collier in 2 weeks. Receipt of prescriptions verified with [facility] (listed as preferred pharmacy). IV HL d/c'd, catheter tip intact. Tele box returned to tele station. All belongings accounted for. Pt sent home via private car driven by .
== END 2019-03-23 11:00 | disposition home or self-care (01) | DRG 189 ==
LOC: ER 09:41 → MEDSG1 13:07 → TELE1 17:56
PROVIDERS: ADMIT Legal Medicine; ATTEND Internal Medicine
DX: J96.90 Respiratory failure, unspecified, unspecified whether with hypoxia or hypercapnia (principal); J45.901 Unspecified asthma with (acute) exacerbation; I48.92 Unspecified atrial flutter; I48.91 Unspecified atrial fibrillation; I25.10 Atherosclerotic heart disease of native coronary artery without angina pectoris; F32.9 Major depressive disorder, single episode, unspecified; F17.210 Nicotine dependence, cigarettes, uncomplicated; E78.5 Hyperlipidemia, unspecified; I10 Essential (primary) hypertension; K59.00 Constipation, unspecified; K58.9 Irritable bowel syndrome, unspecified; J06.9 Acute upper respiratory infection, unspecified
CPT/HCPCS: 36415; 71045-TC; 71250-TC; 75574; 80048-TC; 80061-TC; 83735-TC; 84439-TC; 84443-TC; 84484-TC; 85025-TC; 87081-TC; 93307-TC; 94799-TC; A4216; C9113; G0378; J1650; J1956; J2920; J2930; J3490; J7050; Q9967

== ENCOUNTER 2019-05-26 10:56 | Outpatient (CLI) | payer BC, MEDICARE ==
[~2019-05-26 10:56] MED LIST changes: -CHOL20004 PO; +FLUT1DIS3 INH; -IBUP-1957 PO; +LEVO750T21 PO; -PRED20TA PO; +PRED5TAB48 PO; +SIMV-46 PO
[2019-05-26 13:04] LABS: BILIRUBIN,URINE NEGATIVE (NEGATIVE); BLOOD, URINE NEGATIVE Ery/uL (NEGATIVE); COLOR,URINE DARK YELLO (YELLOW); KETONES,URINE NEGATIVE (NEGATIVE); LEUKOCYTE ESTERASE ,URINE NEGATIVE (NEGATIVE); NITRITE, URINE NEGATIVE (NEGATIVE); PH,URINE 5.5 (5.0-8.0); PROTEIN,URINE NEGATIVE (NEGATIVE); UGLUCOSE NEGATIVE (NEGATIVE); UROBILINOGEN,URINE 0.2 EU/dL (0.2)
[2019-05-26 13:15] LABS: BASOPHILS % (AUTO) 0.3 % (0.0-2.0); EOSINOPHILS % (AUTO) 1.5 % (0.0-6.0); HEMATOCRIT 45 % (33-45); HEMOGLOBIN 15.2 g/dL (11.5-14.8); LYMPHOCYTES # (AUTO) 1.1 /CMM (0.8-4.8); LYMPHOCYTES % (AUTO) 15.1 % (20.0-44.0); MEAN CORPUSCULAR HGB CONC 34 g/dl (31.0-36.0); MEAN CORPUSCULAR VOLUME 93 fL (82-100); MONOCYTES # (AUTO) 0.8 /CMM (0.1-1.30); MONOCYTES % (AUTO) 11.1 % (2.0-12.0); NEUTROPHILS # (AUTO) 5.4 /CMM (1.8-8.9); PLATELET COUNT (AUTO) 233 /CMM (150-450); RED BLOOD CELL COUNT(AUTO) 4.88 MIL/uL (4.0-5.2); WHITE BLOOD COUNT (AUTO) 7.5 K/uL (4.3-11.0)
[2019-05-26 13:18] LABS: APPEARANCE,URINE CLEAR (CLEAR)
[2019-05-26 13:38] LABS: ALBUMIN 4.4 g/dL (3.4-5.0); BILIRUBIN,TOTAL 0.5 mg/dL (0.2-1.0); CALCIUM, SERUM 8.9 mg/dL (8.5-10.1); CREATININE 0.8 mg/dL (0.6-1.3); POTASSIUM 3.5 mmol/L (3.5-5.1); TOTAL PROTEIN, SERUM 7.6 g/dL (6.4-8.2)
[2019-05-26 13:49] LABS: FREE T4 (FREE THYROXINE) 1.18 ng/dL (0.76-1.46); THYROID STIMULATING HORMONE 1.149 uIU/mL (0.358-3.74); URIC ACID 6.5 mg/dL (2.6-7.2)
[2019-05-27 10:07] LABS: FOLIC ACID 14.8 ng/mL (>3.0)
[2019-05-27 13:08] LABS: THYROID PEROXIDASE (TPO) AB <6 IU/mL (0-34)
== END 2019-05-26 23:59 | disposition home or self-care (01) ==
LOC: LAB 10:56
PROVIDERS: ATTEND Legal Medicine
DX: E04.2 Nontoxic multinodular goiter (principal)
CPT/HCPCS: 36415; 76536-TC; 80053-TC; 80061-TC; 81000-TC; 82306; 82728-TC; 83540-TC; 84439-TC; 84443-TC; 84481; 84550-TC; 85025-TC; 86376; 86800

== ENCOUNTER 2019-08-17 12:46 | Outpatient (CLI) | payer BC, MEDICARE ==
[2019-08-17 16:24] LABS: BASOPHILS # (AUTO) 0.1 /CMM (0.0-0.2); BASOPHILS % (AUTO) 0.8 % (0.0-2.0); EOSINOPHILS % (AUTO) 1.4 % (0.0-6.0); HEMATOCRIT 42 % (33-45); HEMOGLOBIN 14.5 g/dL (11.5-14.8); LYMPHOCYTES # (AUTO) 1.9 /CMM (0.8-4.8); LYMPHOCYTES % (AUTO) 21.7 % (20.0-44.0); MEAN CORPUSCULAR HGB CONC 34 g/dl (31.0-36.0); MEAN CORPUSCULAR VOLUME 92 fL (82-100); MONOCYTES # (AUTO) 0.7 /CMM (0.1-1.30); MONOCYTES % (AUTO) 7.7 % (2.0-12.0); NEUTROPHILS % (AUTO) 68.4 % (43.0-81.0); PLATELET COUNT (AUTO) 242 /CMM (150-450); RED BLOOD CELL COUNT(AUTO) 4.61 MIL/uL (4.0-5.2); WHITE BLOOD COUNT (AUTO) 8.8 K/uL (4.3-11.0)
== END 2019-08-17 23:59 | disposition home or self-care (01) ==
LOC: LAB 12:46
PROVIDERS: ATTEND Internal Medicine Pulmonary Disease
DX: J98.01 Acute bronchospasm (principal)
CPT/HCPCS: 36415; 85025-TC

== ENCOUNTER 2019-11-03 08:45 | Outpatient (CLI) | payer BC, MEDICARE | END 2019-11-03 23:59 | disposition home or self-care (01) | LOC: CT 08:45 | PROVIDERS: ATTEND Legal Medicine | DX: S32.010A Wedge compression fracture of first lumbar vertebra, initial encounter for closed fracture (principal); S22.089A Unspecified fracture of T11-T12 vertebra, initial encounter for closed fracture; M41.84 Other forms of scoliosis, thoracic region; J45.50 Severe persistent asthma, uncomplicated; J21.9 Acute bronchiolitis, unspecified; X58.XXXA Exposure to other specified factors, initial encounter; Y93.89 Activity, other specified; Y92.89 Other specified places as the place of occurrence of the external cause; Y99.8 Other external cause status | CPT/HCPCS: 71250-TC ==

== ENCOUNTER 2020-03-25 16:04 | Emergency (ER) | payer BC, MEDICARE ==
[~2020-03-25] VITALS: Ht 160 cm; Wt 77.1 kg
[2020-03-25 16:57] VITALS: BP 144/75
[2020-03-25] MEDS ORDERED: TRAMADOL HCL 50 MG TABLET PO ONE (18:30)
[2020-03-25] MEDS ORDERED: IBUPROFEN 600 MG TABLET PO ONE (18:30)
== END 2020-03-25 18:22 | disposition home or self-care (01) ==
LOC: ER 16:08
DX: S52.591A Other fractures of lower end of right radius, initial encounter for closed fracture (principal); Z90.49 Acquired absence of other specified parts of digestive tract; Z91.011 Allergy to milk products; Z88.0 Allergy status to penicillin; Z88.6 Allergy status to analgesic agent; Z88.5 Allergy status to narcotic agent; Z88.2 Allergy status to sulfonamides; Z88.8 Allergy status to other drugs, medicaments and biological substances; Z79.899 Other long term (current) drug therapy; W01.0XXA Fall on same level from slipping, tripping and stumbling without subsequent striking against object, initial encounter; Y93.89 Activity, other specified; Y92.89 Other specified places as the place of occurrence of the external cause; Y99.8 Other external cause status
CPT/HCPCS: 73090-TC; 73110

== ENCOUNTER 2020-05-06 14:11 | Outpatient (CLI) | payer BC, MEDICARE ==
[2020-05-06 15:51] LABS: BASOPHILS % (AUTO) 0.3 % (0.0-2.0); EOSINOPHILS % (AUTO) 0.1 % (0.0-6.0); HEMATOCRIT 42 % (33-45); HEMOGLOBIN 14.2 g/dL (11.5-14.8); LYMPHOCYTES # (AUTO) 0.8 /CMM (0.8-4.8); LYMPHOCYTES % (AUTO) 7.5 % (20.0-44.0); MEAN CORPUSCULAR HGB CONC 34 g/dl (31.0-36.0); MEAN CORPUSCULAR VOLUME 93 fL (82-100); MONOCYTES # (AUTO) 0.5 /CMM (0.1-1.30); MONOCYTES % (AUTO) 5.1 % (2.0-12.0); NEUTROPHILS # (AUTO) 9.3 /CMM (1.8-8.9); PLATELET COUNT (AUTO) 283 /CMM (150-450); RED BLOOD CELL COUNT(AUTO) 4.58 MIL/uL (4.0-5.2); WHITE BLOOD COUNT (AUTO) 10.6 K/uL (4.3-11.0)
[2020-05-06 16:31] LABS: BILIRUBIN,TOTAL 0.5 mg/dL (0.2-1.0); CALCIUM, SERUM 9.3 mg/dL (8.5-10.1); CREATININE 0.9 mg/dL (0.6-1.3); POTASSIUM 3.8 mmol/L (3.5-5.1); TOTAL PROTEIN, SERUM 7.2 g/dL (6.4-8.2)
[2020-05-06 16:43] LABS: THYROID STIMULATING HORMONE 0.276 uIU/mL (0.358-3.74)
== END 2020-05-06 23:59 | disposition home or self-care (01) ==
LOC: LAB 14:11
DX: S40.911A Unspecified superficial injury of right shoulder, initial encounter (principal); S40.912A Unspecified superficial injury of left shoulder, initial encounter; S20.401A Unspecified superficial injuries of right back wall of thorax, initial encounter; S30.91XA Unspecified superficial injury of lower back and pelvis, initial encounter; S70.922A Unspecified superficial injury of left thigh, initial encounter; S70.921A Unspecified superficial injury of right thigh, initial encounter; S30.92XA Unspecified superficial injury of abdominal wall, initial encounter; L30.9 Dermatitis, unspecified; L29.8 Other pruritus; X58.XXXA Exposure to other specified factors, initial encounter; Y93.89 Activity, other specified; Y92.89 Other specified places as the place of occurrence of the external cause; Y99.8 Other external cause status
CPT/HCPCS: 80053-TC; 84439-TC; 84443-TC; 85025-TC

== ENCOUNTER 2020-05-23 08:08 | Outpatient (CLI) | payer BC, MEDICARE ==
[2020-05-23 10:15] LABS: FREE T4 (FREE THYROXINE) 0.79 ng/dL (0.76-1.46); THYROID STIMULATING HORMONE 1.223 uIU/mL (0.358-3.74)
[2020-05-24 08:06] LABS: T3, FREE 2.4 pg/mL (2.0-4.4); THYROID PEROXIDASE (TPO) AB <9 IU/mL (0-34)
== END 2020-05-23 23:59 | disposition home or self-care (01) ==
LOC: LAB 08:08
PROVIDERS: ATTEND Legal Medicine
DX: E03.9 Hypothyroidism, unspecified (principal)
CPT/HCPCS: 36415; 84439-TC; 84443-TC; 84481; 86376; 86800

== ENCOUNTER 2020-08-17 10:57 | Outpatient (CLI) | payer BC, MEDICARE ==
[2020-08-17 12:17] LABS: BASOPHILS % (AUTO) 0.4 % (0.0-2.0); EOSINOPHILS % (AUTO) 1.8 % (0.0-6.0); HEMATOCRIT 44 % (33-45); HEMOGLOBIN 14.6 g/dL (11.5-14.8); LYMPHOCYTES # (AUTO) 1.7 /CMM (0.8-4.8); LYMPHOCYTES % (AUTO) 15.8 % (20.0-44.0); MEAN CORPUSCULAR HGB CONC 33 g/dl (31.0-36.0); MEAN CORPUSCULAR VOLUME 94 fL (82-100); MONOCYTES # (AUTO) 0.8 /CMM (0.1-1.30); MONOCYTES % (AUTO) 7.8 % (2.0-12.0); NEUTROPHILS # (AUTO) 7.7 /CMM (1.8-8.9); NEUTROPHILS % (AUTO) 74.2 % (43.0-81.0); PLATELET COUNT (AUTO) 230 /CMM (150-450); RED BLOOD CELL COUNT(AUTO) 4.69 MIL/uL (4.0-5.2); WHITE BLOOD COUNT (AUTO) 10.4 K/uL (4.3-11.0)
[2020-08-17 12:21] LABS: BILIRUBIN,URINE NEGATIVE (NEGATIVE); COLOR,URINE YELLOW (YELLOW); LEUKOCYTE ESTERASE ,URINE NEGATIVE (NEGATIVE); NITRITE, URINE NEGATIVE (NEGATIVE); PROTEIN,URINE NEGATIVE (NEGATIVE); UGLUCOSE NEGATIVE (NEGATIVE); UROBILINOGEN,URINE 0.2 EU/dL (0.2)
[2020-08-17 12:47] LABS: THYROID STIMULATING HORMONE 1.706 uIU/mL (0.358-3.74); URIC ACID 6.5 mg/dL (2.6-7.2)
[2020-08-17 13:03] LABS: ALBUMIN 4.2 g/dL (3.4-5.0); BILIRUBIN,TOTAL 0.6 mg/dL (0.2-1.0); CALCIUM, SERUM 9.1 mg/dL (8.5-10.1); CREATININE 0.8 mg/dL (0.6-1.3); POTASSIUM 3.7 mmol/L (3.5-5.1); TOTAL PROTEIN, SERUM 7.5 g/dL (6.4-8.2)
[2020-08-17 13:10] LABS: BACTERIA,URINE None seen /HPF (None Seen); RBC,URINE 0-2 /HPF (0-2); SQUAMOUS EPITHELIAL CELL,UR Few /HPF (None Seen); WBC,URINE NONE SEEN /HPF (0-3)
== END 2020-08-17 23:59 | disposition home or self-care (01) ==
LOC: RAD 10:57
PROVIDERS: ATTEND Legal Medicine
DX: M47.816 Spondylosis without myelopathy or radiculopathy, lumbar region (principal); M51.37 Other intervertebral disc degeneration, lumbosacral region; M41.85 Other forms of scoliosis, thoracolumbar region; M46.05 Spinal enthesopathy, thoracolumbar region; M85.88 Other specified disorders of bone density and structure, other site; I70.0 Atherosclerosis of aorta; M17.11 Unilateral primary osteoarthritis, right knee; M25.761 Osteophyte, right knee; M25.461 Effusion, right knee; Z90.49 Acquired absence of other specified parts of digestive tract
CPT/HCPCS: 36415; 71046; 72110-TC; 73562; 80053-TC; 80061-TC; 81001; 82306; 82607-TC; 82728-TC; 83540-TC; 84439-TC; 84443-TC; 84550-TC; 85025-TC

== ENCOUNTER 2023-07-02 11:49 | Emergency (ER) | payer BC, MEDICARE ==
[~2023-07-02] VITALS: Ht 154.9 cm; Wt 72.6 kg
[2023-07-02] MEDS ORDERED: KETOROLAC TROMETHAMINE INJ 30 MG/ML VIAL ONE (13:23)
[2023-07-02] MEDS: KETOROLAC TROMETHAMINE INJ 60 MG/2 ML VIAL IM ONE (13:26)
[2023-07-02] MEDS ORDERED: KETO10TA2 PO (13:44)
[2023-07-02 14:22] VITALS: BP 128/68; TEMP 98.4; O2SAT 99
== END 2023-07-02 14:23 | disposition home or self-care (01) ==
LOC: ER 11:55
DX: M94.0 Chondrocostal junction syndrome [Tietze] (principal); Z90.49 Acquired absence of other specified parts of digestive tract; Z88.0 Allergy status to penicillin; Z91.011 Allergy to milk products; Z88.5 Allergy status to narcotic agent; Z88.8 Allergy status to other drugs, medicaments and biological substances; Z79.899 Other long term (current) drug therapy
CPT/HCPCS: 99283; 96372; 71111; J1885

== ENCOUNTER 2024-05-21 17:16 | Emergency (ER) | payer MEDICARE ==
[~2024-05-21] VITALS: Ht 154.9 cm; Wt 67.1 kg
[~2024-05-21 17:16] MED LIST changes: +KETO10TA2 PO
[2024-05-21 17:52] LABS: BASOPHILS % (AUTO) 0.4 % (0.0-2.0); EOSINOPHILS # (AUTO) 0.2 K/uL (0.0-0.7); HEMATOCRIT 43 % (33-45); LYMPHOCYTES # (AUTO) 1.2 K/uL (0.8-4.8); LYMPHOCYTES % (AUTO) 14.5 % (20.0-44.0); MEAN CORPUSCULAR HEMOGLOBIN 31 PG (26.0-33.0); MEAN CORPUSCULAR HGB CONC 35 g/dl (31.0-36.0); MEAN CORPUSCULAR VOLUME 88 fL (82-100); MONOCYTES # (AUTO) 0.8 K/uL (0.1-1.30); MONOCYTES % (AUTO) 9.7 % (2.0-12.0); NEUTROPHILS # (AUTO) 6.1 K/uL (1.8-8.9); NEUTROPHILS % (AUTO) 73.4 % (43.0-81.0); PLATELET COUNT (AUTO) 304 K/uL (150-450); RED BLOOD CELL COUNT(AUTO) 4.84 MIL/uL (4.0-5.2); RED CELL DISTRIBUTION WIDTH 12.2 % (11.5-15.0); WHITE BLOOD COUNT (AUTO) 8.2 K/uL (4.3-11.0)
[2024-05-21 18:09] LABS: ALBUMIN 3.9 g/dL (3.4-5.0); BILIRUBIN,DIRECT 0.2 mg/dL (0.0-0.2); BILIRUBIN,TOTAL 0.6 mg/dL (0.2-1.0); CALCIUM, SERUM 9.2 mg/dL (8.5-10.1); CREATININE 0.8 mg/dL (0.6-1.3); POTASSIUM 3.5 mmol/L (3.5-5.1); TOTAL PROTEIN, SERUM 7.9 g/dL (6.4-8.2)
[2024-05-21] MEDS ORDERED: ONDANSETRON HCL/PF 4 MG/2 ML VIAL ONE (18:53)
[2024-05-21] MEDS: IV NS 0.9% 1,000 ML BAG IV ONE (18:54)
[2024-05-21] MEDS: KETOROLAC TROMETHAMINE 15 MG/ML VIAL IV ONE (18:56)
[2024-05-21] MEDS: ONDANSETRON HCL/PF 4 MG/2 ML VIAL IV ONE (18:57)
[2024-05-21] MEDS ORDERED: LEVOFLOXACIN 500 MG /D5W 100ML 500 MG/100 ML PIGGYBACK IV ONE (19:00)
[2024-05-21 19:21] LABS: APPEARANCE,URINE CLEAR (CLEAR); COLOR,URINE YELLOW (YELLOW)
[2024-05-21 19:22] LABS: PROTEIN,URINE NEGATIVE (NEGATIVE)
[2024-05-21 19:23] LABS: BILIRUBIN,URINE 1+ (NEGATIVE); BLOOD, URINE TRACE Ery/uL (NEGATIVE); UGLUCOSE NEGATIVE (NEGATIVE)
[2024-05-21 19:24] LABS: KETONES,URINE TRACE mg/dL (NEGATIVE); LEUKOCYTE ESTERASE ,URINE TRACE (NEGATIVE); NITRITE, URINE NEGATIVE (NEGATIVE)
[2024-05-21 19:25] LABS: RBC,URINE 0-2 /HPF (0-2)
[2024-05-21 19:26] LABS: ADD URINE CULTURE NO; BACTERIA,URINE Few /HPF (None Seen); SQUAMOUS EPITHELIAL CELL,UR Few /HPF (None Seen)
[2024-05-21] MEDS ORDERED: CIPROFLOXACIN IV RTU 200 ML IV ONE (19:59)
[2024-05-21] MEDS ORDERED: CIPR500T5 PO (20:16)
[2024-05-21] MEDS ORDERED: ONDA4TAB5 PO (20:16)
[2024-05-21] MEDS: CIPROFLOXACIN IV RTU 400 MG in PREMIX 1 EA IV STA (20:16)
[2024-05-21] MEDS ORDERED: IBUP-1955 PO (20:16)
[2024-05-21 20:27] LABS: APPEARANCE,URINE CLEAR (CLEAR); BILIRUBIN,URINE NEGATIVE (NEGATIVE); BLOOD, URINE NEGATIVE Ery/uL (NEGATIVE); COLOR,URINE YELLOW (YELLOW); KETONES,URINE TRACE mg/dL (NEGATIVE); LEUKOCYTE ESTERASE ,URINE TRACE (NEGATIVE); NITRITE, URINE NEGATIVE (NEGATIVE); PH,URINE 6.5 (5.0-8.0); PROTEIN,URINE NEGATIVE (NEGATIVE); UGLUCOSE NEGATIVE (NEGATIVE)
[2024-05-21] MEDS ORDERED: NITR100C6 PO (20:54)
[2024-05-21 20:57] LABS: ADD URINE CULTURE NO; BACTERIA,URINE Rare /HPF (None Seen); RBC,URINE 0-2 /HPF (0-2); SQUAMOUS EPITHELIAL CELL,UR Few /HPF (None Seen)
[2024-05-21 22:09] VITALS: BP 155/69; TEMP 98.3; O2SAT 96
== END 2024-05-21 22:10 | disposition home or self-care (01) ==
LOC: ER 17:27
DX: N39.0 Urinary tract infection, site not specified (principal); K58.9 Irritable bowel syndrome, unspecified; R11.0 Nausea; Z79.51 Long term (current) use of inhaled steroids; Z79.899 Other long term (current) drug therapy; Z88.0 Allergy status to penicillin; Z88.1 Allergy status to other antibiotic agents; Z88.2 Allergy status to sulfonamides; Z88.5 Allergy status to narcotic agent; Z90.49 Acquired absence of other specified parts of digestive tract; Z87.39 Personal history of other diseases of the musculoskeletal system and connective tissue; Z87.2 Personal history of diseases of the skin and subcutaneous tissue
CPT/HCPCS: 99285; 74176; 96365; 96375; 96361; 85025; 80048; 83690; 80076; 36415; 81001 ×3; J1885 ×2; J2405; J7030; A4216; J0744 ×2